=== PATIENT | female | born 1970 | race Caucasian/White ===

== ENCOUNTER 2019-01-06 17:03 | Outpatient (CLI) | payer OTHER ==
--- NOTE | 2019-01-06 21:51 | MRI Report ---
Reason: FATIGUE Procedure Date: 01/06/2019 Accession Number: [id number] / [id number] Procedure: MRI - Brain W/O CPT Code: FULL RESULT: EXAM: MRI BRAIN WITHOUT CONTRAST EXAM DATE: 01/06/2019 05:54 PM. CLINICAL HISTORY: Fatigue. COMPARISON: None. TECHNIQUE: Multiplanar, multisequence T1-weighted and fluid-sensitive MR sequences of the brain were performed. Sequences optimized for routine evaluation. Other: None. IV Contrast: None. FINDINGS: Brain Volume: Normal for age. Parenchyma/Dura: No mass, acute infarct or hemorrhage. No white matter lesions identified. Ventricles/Cisterns: No hydrocephalus. No abnormal extra-axial fluid collection or hemorrhage. Orbits: Symmetric and unremarkable. Sella [place]: The sella appears normal. There is a partial "empty sella" appearance to the pituitary. No suprasellar mass or mass effect seen on the overlying optic structures. IAC: Symmetric and unremarkable. Vasculature: Normal signal flow void is seen in the major arterial structures at the skull base. Sinuses: Small left maxillary mucosal retention cyst versus polyps. Minimal mucosal thickening of the ethmoid air cells. Mastoid air cells and middle ear cavities appear clear. Bones: No focal pathologic appearing marrow signal changes. Other: There is T2 signal hyperintensity seen within the posterior right nasopharynx measuring 7 x 5 x 4 mm (CC x TR x AP) that may represent mucosal retention cyst versus polyp. IMPRESSION: No definite acute intracranial pathology seen; specifically, no acute infarct, acute intracranial hemorrhage, mass, hydrocephalus, or midline shift. RADIA
== END 2019-01-06 17:04 | disposition home or self-care (01) ==
LOC: DI 17:03
PROVIDERS: ATTEND General Practice
DX: R53.83 Other fatigue (principal)
CPT/HCPCS: 70551

== ENCOUNTER 2019-07-07 07:30 | Emergency (ER) | payer OTHER ==
[2019-07-07 07:47] VITALS: BP 113/72
[2019-07-07 08:26] LABS: BASOPHILS % (AUTO) 0.7 %; EOSINOPHILS # (AUTO) 0.3 10^3/uL (0.0-0.7); EOSINOPHILS % (AUTO) 4.5 %; HGB - HEMOGLOBIN 13.8 g/dL (12.0-16.0); LYMPHOCYTES # (AUTO) 1.3 10^3/uL (1.5-3.5); LYMPHOCYTES % (AUTO) 23.9 %; MEAN CORPUSCULAR HEMOGLOBIN 28.3 pg (27.0-31.0); MEAN CORPUSCULAR HGB CONC 32.9 g/dL (32.0-36.0); MEAN CORPUSCULAR VOLUME 85.9 fL (81.0-99.0); MEAN PLATELET VOLUME 10.4 fL (7.9-10.8); MONOCYTES # (AUTO) 0.4 10^3/uL (0.0-1.0); MONOCYTES % (AUTO) 7.1 %; NEUTROPHILS # (AUTO) 3.5 10^3/uL (1.5-6.6); NEUTROPHILS % (AUTO) 63.3 %; PLT - PLATELET COUNT 214 10^3/uL (130-450); RED BLOOD COUNT 4.88 10^6/uL (4.20-5.40); RED CELL DISTRIBUTION WIDTH 12.4 % (12.0-15.0); WHITE BLOOD COUNT 5.6 x10^3/uL (4.8-10.8)
[2019-07-07 08:29] LABS: BILIRUBIN,URINE NEGATIVE (NEGATIVE); GLUCOSE, URINE (UA) NEGATIVE (NEGATIVE); KETONES,URINE (UA) NEGATIVE (NEGATIVE); LEUKOCYTE ESTERASE, URINE NEGATIVE (NEGATIVE); NITRITE,URINE NEGATIVE (NEGATIVE); OCCULT BLOOD,URINE NEGATIVE (NEGATIVE); PROTEIN,URINE NEGATIVE (NEGATIVE); UROBILINOGEN,URINE 0.2 (NORMAL) E.U./dL (NORMAL)
--- NOTE | 2019-07-07 08:29 | ED Physician Documentation ---
PD HPI NVD - Stated complaint Stated Complaint: ABD PX - Chief complaint Chief Complaint: Abd Pain - History obtained from History obtained from: Patient - History of Present Illness Timing - onset: Enter time (0300), Last night Timing - duration: Hours Timing - details: Still present Associated symptoms: Abdominal pain Contributing factors: No: Sick contact, Bad food, Travel, Recent antibiotics, Alcohol use, Anticoagulated, Diabetes Improved by: Laying still Worsened by: Moving, Position, Palpation Similar symptoms before: Diagnosis (gall stone and bowel obstruction) Recently seen: Not recently seen - Additonal information Additional information: 48-year-old female with a history of bipolar disorder and endometriosis has had a prior bowel obstruction related to mesh placed for hernia some 7 years ago. She has a known large gallstone and she has had problems with pain in the right upper quadrant for years. Today she indicates that early in the morning she was awakened by pain nausea and vomiting and this is persisted. This is much worse than what she has had for episodes of right upper quadrant pain previously she states that now the right upper quadrant does not seem as tender but she still has 7 out of 10 pain. The pain is mostly across the lower abdomen. 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, 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 - Present Medications Home Medications: Ambulatory Orders Medication Instructions Recorded Confirmed Escitalopram [Lexapro] 10 mg PO DAILY 07/07/19 07/07/19 Prozasin 2 mg ORAL DAILY 07/07/19 Topiramate [Topamax] 50 mg PO 07/07/19 - Allergies Allergies/Adverse Reactions: Allergies Allergy/AdvReac Type Severity Reaction Status Date / Time Latex, Natural Rubber Allergy Unknown unknown Verified 07/07/19 07:47 adhesive AdvReac Unknown UNKOWN Verified 07/07/19 07:47 - Social History Does the pt smoke?: No Smoking Status: Never smoker Does the pt drink ETOH?: Yes Does the pt have substance abuse?: No - Immunizations Immunizations are current?: Yes PD ED PE NORMAL - Vitals Vital signs reviewed: Yes (normal ) - General General: Alert and oriented X 3, No acute distress, Well developed/nourished - HEENT HEENT: Atraumatic, PERRL, EOMI - Neck Neck: Supple, no meningeal sign, No bony TTP - Cardiac Cardiac: RRR, No murmur - Respiratory Respiratory: No respiratory distress, Clear bilaterally - Abdomen Abdomen: Soft, Other (There is tender mass in the infraumbilical area. This extends all the way across the lower abdomen and with continued circumfirential pressure the hernia reduces with relief of pain. ) - Back Back: No CVA TTP, No spinal TTP - Derm Derm: Normal color, Warm and dry, No rash - Extremities Extremities: No deformity, No edema, No calf tenderness / cord - Neuro Neuro: Alert and oriented X 3, ear nose and throat specialist 2-12 intact, No motor deficit, No sensory deficit, Normal speech Eye Opening: Spontaneous Motor: Obeys Commands Verbal: Oriented GCS Score: 15 - Psych Psych: Normal mood, Normal affect Results - Vitals Vitals: Vital Signs - 24 hr 07/07/19 07/07/19 07/07/19 07:42 09:24 10:19 Temperature 35.8 C L Heart Rate 64 75 69 Respiratory 18 20 Rate Blood Pressure 113/72 O2 Saturation 99 99 100 07/07/19 10:47 Temperature Heart Rate 75 Respiratory Rate Blood Pressure O2 Saturation 96 Oxygen O2 Source Room air - Labs Labs: Laboratory Tests 07/07/19 07/07/19 07/07/19 07:50 08:00 08:00 WBC 5.6 RBC 4.88 Hgb 13.8 Hct 41.9 MCV 85.9 MCH 28.3 MCHC 32.9 RDW 12.4 Plt Count 214 MPV 10.4 Neut # (Auto) 3.5 Lymph # (Auto) 1.3 L [place] # (Auto) 0.4 Eos # (Auto) 0.3 Baso # (Auto) 0.0 Absolute Nucleated RBC 0.00 Nucleated RBC % 0.0 Sodium 140 Potassium 3.7 Chloride 108 Carbon Dioxide 22 Anion Gap 10.0 BUN 19 Creatinine 0.8 Estimated GFR (MDRD) 77 L Glucose 161 H Calcium 8.8 Total Bilirubin 0.5 AST 18 ALT 16 Alkaline Phosphatase 59 Total Protein 7.4 Albumin 4.3 Globulin 3.1 Albumin/Globulin Ratio 1.4 Lipase 108 H Urine Color YELLOW Urine Clarity CLEAR Urine pH 6.0 Ur Specific [place] 1.025 Urine Protein NEGATIVE Urine Glucose (UA) NEGATIVE Urine Ketones NEGATIVE Urine Occult Blood NEGATIVE Urine Nitrite NEGATIVE Urine Bilirubin NEGATIVE Urine Urobilinogen 0.2 (NORMAL) Ur Leukocyte Esterase NEGATIVE Ur Microscopic Review NOT INDICATED Urine Culture Comments NOT INDICATED - Rads (name of study) CT ab w Radiology: Prelim report reviewed (Impression: Large lower abdominal/upper pelvis ventral hernia containing nonobstructed small and large bowel.), EMP read indepedently, See rad report Procedures - Bedside sono Bedside sono by EMP: With use of bedside ultrasound the right upper quadrant is imaged the gallbladder is distended there is a single large stone with shadowing there is no evidence of pericholecystic fluid the gallbladder itself is not sonographically tender. The gallbladder wall is measured at 0.37 cm. This gallbladder appears to have a solitary stone without evidence of inflammation and is sonographically nontender. PD MEDICAL DECISION MAKING - ED course Complexity details: reviewed old records, reviewed results, re-evaluated patient, considered differential, d/w patient ED course: 48-year-old female with a prior history of bowel obstruction has abdominal pain nausea and vomiting and on initial examination she is not tender in the right upper quadrant where the obvious finding of the gallstone is present. The bedside ultrasound is reassuring for a process not involving the gallbladder. A CT scan of the abdomen and pelvis with contrast is obtained to rule out obstruction. There is a large ventral hernia containing nonobstructed loops of small and large bowel. This is area of the patient's tenderness. The patient is reexamined and the hernia is reduced with circumferential pressure and patient has resolution of her symptoms. I suspect there is some tightness somewhere in this patient's large hernia that reduction has resolved. I have discussed with the patient management of her hernia including ways to reduce it when necessary and use of an abdominal binder. The hernia defect is large and unlikely to produce a obstruction. The patient does frequently get symptoms when she coughs or vomits. She does have questions about the gallstone and whether she should have her gallbladder taken out. I have referred her to the surgeon for this discussion as the stone does look like it is too large to get out of her gallbladder. She has having symptoms of gallbladder pain about 4-5 times per year Departure - Departure Disposition: 01 Home, Self Care Clinical Impression: Ventral hernia without obstruction or gangrene Condition: Stable Instructions: ED Hernia Inguinal [facility]: [facility]Provider Group] Comments: Today it appears your pain was related to your hernia and my recommendation is, that if you get these symptoms again, to attempt to reduce this yourself. If you are unable to we are here 24 hours a day and can assist you with this. As far as your gallbladder is concerned my recommendation is to follow-up with the surgeon about the advisability of having this removed. Discharge Date/Time: 07/07/19 11:08
[2019-07-07 08:34] LABS: ALBUMIN 4.3 g/dL (3.2-5.5); ALBUMIN/GLOBULIN RATIO 1.4 (1.0-2.2); BILIRUBIN,TOTAL 0.5 mg/dL (0.2-1.0); CALCIUM 8.8 mg/dL (8.5-10.3); CREATININE 0.8 mg/dL (0.4-1.0); TOTAL PROTEIN 7.4 g/dL (6.7-8.2)
[2019-07-07 08:37] LABS: CLARITY,URINE CLEAR (CLEAR)
[2019-07-07] MEDS ORDERED: IOVERSOL 320 50 ML VIAL ONE (08:38)
[2019-07-07] MEDS ORDERED: IOVERSOL 320 100 ML VIAL IVP ONE ×2 (08:38→09:57)
[2019-07-07] MEDS ORDERED: HYDROmorphone 1 MG/ML CARPUJECT IVP STA (09:02)
[2019-07-07] MEDS ORDERED: ONDANSETRON 4 MG/2 ML VIAL IVP STA (09:02)
[2019-07-07] MEDS ORDERED: SODIUM CHLORIDE 0.9% 1,000 ML IV ONE (09:02)
[2019-07-07] MEDS ORDERED: IOVERSOL 320 50 ML VIAL PO ONE (09:57)
--- NOTE | 2019-07-07 10:06 | CT Report ---
Reason: lower abd pain/vomiting hx/o obstruction Procedure Date: 07/07/2019 Accession Number: [id number] / [id number] Procedure: CT - Abdomen/Pelvis W CPT Code: Final Report FULL RESULT: EXAM: CT ABDOMEN AND PELVIS EXAM DATE: 07/07/2019 09:47 AM. CLINICAL HISTORY: Lower abdominal pain/vomiting history of obstruction. COMPARISONS: ABDOMEN/PELVIS W/ 10/16/2012 12:57 AM. TECHNIQUE: Routine helical CT imaging was performed through the abdomen and pelvis. IV contrast: 100 mL of Optiray 320 contrast. Enteric contrast: Yes. Reconstructions: Coronal and sagittal. In accordance with CT protocol optimization, one or more of the following dose reduction techniques were utilized for this exam: automated exposure control, adjustment of mA and/or KV based on patient size, or use of iterative reconstructive technique. FINDINGS: Lung Bases: Unremarkable. Liver: Stable 1 cm cyst inferior tip of the right hepatic lobe. No developing hepatic masses. Gallbladder/Bile Ducts: Unremarkable. Spleen: Normal. Pancreas: Normal. Adrenal Glands: Normal. Kidneys: Normal. No masses or hydronephrosis. Peritoneal Cavity/Bowel: There is a large ventral hernia into the patient's panniculus at the level of the iliac crest. The hernia contains non-obstructed small and large bowel. The neck of the hernia is measured at 8 cm transversely. The appendix is not well seen. Pelvic Organs: Urinary bladder appears unremarkable. The uterus is absent. No cystic or mass lesions in either adnexa. Vasculature: No aneurysms or other significant abnormality. Bones: No significant abnormality. Other: None. IMPRESSION: Large lower abdominal/upper pelvis ventral hernia containing nonobstructed small and large bowel. RADIA
== END 2019-07-07 11:08 | disposition home or self-care (01) ==
LOC: ED 07:30
DX: K80.20 Calculus of gallbladder without cholecystitis without obstruction (principal); K43.9 Ventral hernia without obstruction or gangrene
CPT/HCPCS: 36415; 74177; 80053; 81003; 83690; 85025; 96374; 99284; J1170; Q9967; 81001; 87086

== ENCOUNTER 2019-11-14 18:45 | Emergency (ER) | payer OTHER ==
--- NOTE | 2019-11-14 19:07 | ED Physician Documentation ---
PD HPI HEADACHE - Stated complaint Stated Complaint: MIGRAINE,NAUSEA,SWEATING - Chief complaint Chief Complaint: Cardiac - History obtained from History obtained from: Patient - History of Present Illness Timing - onset: How many days ago (2) Timing - onset during: Rest, Light activity Timing - duration: Days (2) Timing - details: Gradual onset, Waxing and waning Worst headache ever?: No: Worst headache ever? Location: Front Quality: Throbbing, Aching Associated symptoms: Nausea, Other (Feeling of general malaise and myalgia. She does have fibromyalgia and feels that this is flared up. No history of migraines.). No: Fever, Vomiting, Weakness, Vision changes Improved by: No: Dark room Worsened by: No: Light, Noise Contributing factors: Recent illness (Currently feeling ill with nausea myalgias and a feeling of general weakness as well as some sinus congestion. She denies sinus discharge.). No: Hypertension, Trauma Similar symptoms before: Has not had sx before Recently seen: Not recently seen Review of Systems Constitutional: reports: Chills, Myalgias, Fatigue. denies: Fever Nose: reports: Sinus pressure / pain. denies: Rhinorrhea / runny nose, Congestion Throat: denies: Sore throat Cardiac: reports: Chest pain / pressure (left side of neck, shoulder and some to the arm. Has some pain with lifting arm above shoulder and with tipping head. No rash.) Respiratory: denies: Dyspnea, Cough GI: denies: Abdominal Pain, Nausea, Vomiting Skin: denies: Rash, Lesions Musculoskeletal: reports: Neck pain. denies: Back pain Neurologic: reports: Generalized weakness, Headache. denies: Focal weakness, Numbness, Near syncope, Altered mental status PD PAST MEDICAL HISTORY - Past Medical History Cardiovascular: None Respiratory: None Endocrine/Autoimmune: None GI: Hiatal hernia : None HEENT: None Psych: Anxiety, Bipolar disorder Musculoskeletal: Fibromyalgia Derm: None - Past Surgical History Past Surgical History: Yes General: Hiatal hernia repair /[employer]: section, 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 - Present Medications Home Medications: Ambulatory Orders Medication Instructions Recorded Confirmed Escitalopram [Lexapro] 10 mg PO DAILY 07/07/19 07/07/19 Prozasin 2 mg ORAL DAILY 07/07/19 Topiramate [Topamax] 50 mg PO 07/07/19 Hydrocodone/Acetaminophen [[place] 1 each PO Q6H PRN #20 tablet 11/14/19 5-325 Tablet] Naproxen 500 mg PO BID #25 tablet 11/14/19 - Allergies Allergies/Adverse Reactions: Allergies Allergy/AdvReac Type Severity Reaction Status Date / Time Latex, Natural Rubber Allergy Unknown unknown Verified 07/07/19 07:47 adhesive AdvReac Unknown UNKOWN Verified 07/07/19 07:47 - Social History Does the pt smoke?: No Smoking Status: Never smoker Does the pt drink ETOH?: Yes Does the pt have substance abuse?: No - Immunizations Immunizations are current?: Yes PD ED PE NORMAL - Vitals Vital signs reviewed: Yes - General General: Alert and oriented X 3, No acute distress, Well developed/nourished - HEENT HEENT: Atraumatic, PERRL, EOMI, Ears normal, Moist mucous membranes, Pharynx benign - Neck Neck: Supple, no meningeal sign, No bony TTP, No adenopathy - Cardiac Cardiac: RRR, No murmur - Respiratory Respiratory: Clear bilaterally - Abdomen Abdomen: Soft, Non tender - Back Back: No CVA TTP - Derm Derm: Normal color, Warm and dry - Extremities Extremities: No tenderness to palpate, Normal ROM s pain, No edema, No calf tenderness / cord - Neuro Neuro: Alert and oriented X 3, No motor deficit, Normal speech Eye Opening: Spontaneous Motor: Obeys Commands Verbal: Oriented GCS Score: 15 - Psych Psych: Normal mood Results - Vitals Vitals: Vital Signs - 24 hr 11/14/19 11/14/19 11/14/19 18:50 21:00 21:52 Temperature 37.1 C 36.7 C Heart Rate 103 H 96 75 Respiratory 18 14 91 H Rate Blood Pressure 144/103 H 114/70 124/70 O2 Saturation 99 96 12 L Oxygen O2 Source Room air - Labs Labs: Laboratory Tests 11/14/19 11/14/19 11/14/19 18:59 18:59 18:59 WBC 6.7 RBC 5.48 H Hgb 15.2 Hct 46.6 MCV 85.0 MCH 27.7 MCHC 32.6 RDW 11.9 L Plt Count 201 MPV 11.6 H Neut # (Auto) 4.3 Lymph # (Auto) 1.6 [place] # (Auto) 0.5 Eos # (Auto) 0.2 Baso # (Auto) 0.0 Absolute Nucleated RBC 0.00 Nucleated RBC % 0.0 Sodium 139 Potassium 3.9 Chloride 103 Carbon Dioxide 25 Anion Gap 11.0 BUN 9 Creatinine 0.7 Estimated GFR (MDRD) 89 Glucose 125 H Calcium 9.6 Total Bilirubin 1.0 AST 22 ALT 25 Alkaline Phosphatase 45 Troponin I High Sens < 2.3 L C-Reactive Protein B-Natriuretic Peptide Total Protein 7.8 Albumin 4.9 Globulin 2.9 Albumin/Globulin Ratio 1.7 Lipase 31 Urine Color Urine Clarity Urine pH Ur Specific [place] Urine Protein Urine Glucose (UA) Urine Ketones Urine Occult Blood Urine Nitrite Urine Bilirubin Urine Urobilinogen Ur Leukocyte Esterase Ur Microscopic Review Urine Culture Comments 11/14/19 11/14/19 11/14/19 18:59 18:59 20:41 WBC RBC Hgb Hct MCV MCH MCHC RDW Plt Count MPV Neut # (Auto) Lymph # (Auto) [place] # (Auto) Eos # (Auto) Baso # (Auto) Absolute Nucleated RBC Nucleated RBC % Sodium Potassium Chloride Carbon Dioxide Anion Gap BUN Creatinine Estimated GFR (MDRD) Glucose Calcium Total Bilirubin AST ALT Alkaline Phosphatase Troponin I High Sens C-Reactive Protein < 1.0 B-Natriuretic Peptide 20 Total Protein Albumin Globulin Albumin/Globulin Ratio Lipase Urine Color YELLOW Urine Clarity CLEAR Urine pH 6.0 Ur Specific [place] 1.020 Urine Protein NEGATIVE Urine Glucose (UA) NEGATIVE Urine Ketones NEGATIVE Urine Occult Blood NEGATIVE Urine Nitrite NEGATIVE Urine Bilirubin NEGATIVE Urine Urobilinogen 0.2 (NORMAL) Ur Leukocyte Esterase NEGATIVE Ur Microscopic Review NOT INDICATED Urine Culture Comments NOT INDICATED PD MEDICAL DECISION MAKING - ED course Complexity details: re-evaluated patient (She is feeling much better with IV fluids and medications. No localizing symptoms. Her headache is mostly gone. Her feeling of myalgias are improved as well.), considered differential (General malaise headache and feeling of unwellness. No cough or shortness of breath. She denies fevers. Consider local infections and can check chest x-ray and urine test. We can check a COVID test though she has not had exposures. The myalgias seem a flareup of her fibromyalgia.), d/w patient Departure - Departure Disposition: 01 Home, Self Care Clinical Impression: Myalgia Headache Qualifiers: Headache type: unspecified Headache chronicity pattern: acute headache Intractability: not intractable Qualified Code(s): R51 - Headache Chest pain Qualifiers: Chest pain type: precordial pain Qualified Code(s): R07.2 - Precordial pain Condition: Stable Record reviewed to determine appropriate education?: Yes Prescriptions: Naproxen 500 mg PO BID #25 tablet Hydrocodone/Acetaminophen [[place] 5-325 Tablet] 1 each PO Q6H PRN #20 tablet PRN Reason: Pain Comments: No signs of obvious infection based on your chest x-ray, urine test, blood count. I do not know whether you are just having some exacerbation of fibromyalgia related to environmental or inflammatory causes. Consider the possibility of early infectious cause and return if you have progressive symptoms or worsening of symptoms. Otherwise take naproxen anti-inflammatory twice daily for the next week or so and add Tylenol or hydrocodone if needed for pains. See how your symptoms are over the next several days. Discharge Date/Time: 11/14/19 22:18
[2019-11-14 19:18] LABS: BASOPHILS % (AUTO) 0.5 %; EOSINOPHILS # (AUTO) 0.2 10^3/uL (0.0-0.7); EOSINOPHILS % (AUTO) 2.7 %; HGB - HEMOGLOBIN 15.2 g/dL (12.0-16.0); LYMPHOCYTES # (AUTO) 1.6 10^3/uL (1.5-3.5); LYMPHOCYTES % (AUTO) 24.2 %; MEAN CORPUSCULAR HEMOGLOBIN 27.7 pg (27.0-31.0); MEAN CORPUSCULAR HGB CONC 32.6 g/dL (32.0-36.0); MEAN PLATELET VOLUME 11.6 fL (7.9-10.8); MONOCYTES # (AUTO) 0.5 10^3/uL (0.0-1.0); MONOCYTES % (AUTO) 7.7 %; NEUTROPHILS # (AUTO) 4.3 10^3/uL (1.5-6.6); NEUTROPHILS % (AUTO) 64.6 %; PLT - PLATELET COUNT 201 10^3/uL (130-450); RED BLOOD COUNT 5.48 10^6/uL (4.20-5.40); RED CELL DISTRIBUTION WIDTH 11.9 % (12.0-15.0); WHITE BLOOD COUNT 6.7 x10^3/uL (4.8-10.8)
[2019-11-14 19:24] LABS: ALBUMIN 4.9 g/dL (3.2-5.5); ALBUMIN/GLOBULIN RATIO 1.7 (1.0-2.2); CALCIUM 9.6 mg/dL (8.5-10.3); CREATININE 0.7 mg/dL (0.4-1.0); TOTAL PROTEIN 7.8 g/dL (6.7-8.2)
[2019-11-14] MEDS: SODIUM CHLORIDE 0.9% 1,000 ML IV STA (19:39)
--- NOTE | 2019-11-14 19:39 | XRAY Report ---
PROCEDURE: Chest 1 View X-Ray INDICATIONS: Chest pain TECHNIQUE: One view of the chest was acquired. COMPARISON: None. FINDINGS: Surgical changes and devices: None. Lungs and pleura: No pleural effusions or pneumothorax. Lungs are clear. Mediastinum: Mediastinal contours appear normal. Heart size is normal. Bones and chest wall: No suspicious bony lesions. Overlying soft tissues appear unremarkable. IMPRESSION: Normal for age, source of chest pain is not seen. Reviewed by: Guero Travis MD on 11/14/2019 7:38 PM PDT Approved by: Guero Travis MD on 11/14/2019 7:38 PM PDT Station ID: [id number]
[2019-11-14] MEDS: MORPHINE 2 MG/ML CARPUJECT IVP STA ×2 (19:40→21:39)
[2019-11-14] MEDS: ONDANSETRON 4 MG/2 ML VIAL IVP STA (19:40)
[2019-11-14] MEDS: DEXAMETHASONE 10 MG/ML VIAL IVP STA (19:40)
[2019-11-14] MEDS: KETOROLAC 30 MG/ML VIAL IVP STA (19:40)
[2019-11-14 21:05] LABS: BILIRUBIN,URINE NEGATIVE (NEGATIVE); GLUCOSE, URINE (UA) NEGATIVE (NEGATIVE); KETONES,URINE (UA) NEGATIVE (NEGATIVE); LEUKOCYTE ESTERASE, URINE NEGATIVE (NEGATIVE); NITRITE,URINE NEGATIVE (NEGATIVE); OCCULT BLOOD,URINE NEGATIVE (NEGATIVE); PROTEIN,URINE NEGATIVE (NEGATIVE); UROBILINOGEN,URINE 0.2 (NORMAL) E.U./dL (NORMAL)
[2019-11-14 21:07] LABS: CLARITY,URINE CLEAR (CLEAR)
[2019-11-14 21:53] VITALS: BP 124/70
== END 2019-11-14 22:18 | disposition home or self-care (01) ==
LOC: ED 18:45
DX: M79.7 Fibromyalgia (principal); R51 Headache; R07.2 Precordial pain; Z20.828 Contact with and (suspected) exposure to other viral communicable diseases
CPT/HCPCS: 36415; 71045; 80053; 81001; 81003; 83690; 83880; 84484; 85025; 86140; 87086; 93005; 96361; 96374; 96375; 99284

== ENCOUNTER 2019-11-22 11:00 | Emergency (ER) | payer OTHER ==
[2019-11-22] MEDS ORDERED: SODIUM CHLORIDE 0.9% 1,000 ML IV STA (11:48)
[2019-11-22] MEDS ORDERED: ONDANSETRON 4 MG/2 ML VIAL IVP STA (11:48)
[2019-11-22] MEDS ORDERED: KETOROLAC 30 MG/ML VIAL IVP STA (11:48)
[2019-11-22] MEDS ORDERED: diphenhydrAMINE INJ 50 MG/ML VIAL IVP STA (11:49)
[2019-11-22] MEDS ORDERED: ALBUTEROL 1 PUFF INH STA (11:50)
--- NOTE | 2019-11-22 11:52 | ED Physician Documentation ---
History of Present Illness - Stated complaint Stated Complaint: MIGRAINE, COUGH - Chief complaint Chief Complaint: Resp - History obtained from History obtained from: Patient - Additonal information Additional information: 49-year-old female presents to the emergency department for evaluation of 2 days of a headache. She reports it is mostly right-sided and pressure-like. She reports that she has light sensitivity and has been nauseated. She denies any fevers but does endorse that she has had a cough for nearly 2 weeks and was seen here on 13 November for a cough and headache. COVID-19 testing at that time was negative. Patient denies abdominal pain or dysuria. She denies any falls or trauma. took aleve for her osorio with mild relief. She denies that she has any history of headaches until the last few months ago. She does report that she has bipolar and was previously taking Topamax which she stopped on her own. she reprots a hx of fibromyalgia and bipolar disorder. psh: CHANI Review of Systems Constitutional: denies: Fever Eyes: denies: Loss of vision Ears: denies: Loss of hearing Nose: denies: Rhinorrhea / runny nose, Congestion Throat: denies: Dental pain / toothache Cardiac: denies: Chest pain / pressure Respiratory: reports: Cough, Wheezing. denies: Dyspnea, Hemoptysis GI: denies: Abdominal Pain, Abdominal Swelling, Nausea, Vomiting : denies: Dysuria, Frequency, Hesitancy Skin: denies: Rash, Lesions Musculoskeletal: denies: Neck pain, Back pain, Extremity pain, Joint pain, Extremity swelling Neurologic: denies: Generalized weakness, Focal weakness, Numbness, Syncope, Seizure PD PAST MEDICAL HISTORY - Past Medical History Cardiovascular: None Respiratory: None Endocrine/Autoimmune: None GI: Hiatal hernia : None HEENT: None Psych: Anxiety, Bipolar disorder Musculoskeletal: Fibromyalgia Derm: None - Past Surgical History Past Surgical History: Yes 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, 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 - Present Medications Home Medications: Ambulatory Orders Medication Instructions Recorded Confirmed Escitalopram [Lexapro] 10 mg PO DAILY 07/07/19 07/07/19 Prozasin 2 mg ORAL DAILY 07/07/19 Topiramate [Topamax] 50 mg PO 07/07/19 Hydrocodone/Acetaminophen [[place] 1 each PO Q6H PRN #20 tablet 11/14/19 5-325 Tablet] Naproxen 500 mg PO BID #25 tablet 11/14/19 Albuterol Sulf [Ventolin Hfa 1 - 2 puffs INH Q4HR PRN #1 inhaler 11/22/19 Inhaler] Benzonatate [Tessalon Perle] 100 - 200 mg PO TID PRN #30 capsule 11/22/19 - Allergies Allergies/Adverse Reactions: Allergies Allergy/AdvReac Type Severity Reaction Status Date / Time Latex, Natural Rubber Allergy Unknown unknown Verified 11/22/19 11:21 adhesive AdvReac Unknown UNKOWN Verified 11/22/19 11:21 - Social History Does the pt smoke?: No Smoking Status: Never smoker Does the pt drink ETOH?: Yes Does the pt have substance abuse?: No - Immunizations Immunizations are current?: Yes PD ED PE NORMAL - General General: Alert and oriented X 3, No acute distress, Well developed/nourished, Other (obese) - HEENT HEENT: Atraumatic, PERRL, EOMI, Moist mucous membranes, Pharynx benign, Dentition benign - Neck Neck: Supple, no meningeal sign, No adenopathy - Cardiac Cardiac: RRR, No murmur - Respiratory Respiratory: No respiratory distress, Clear bilaterally - Abdomen Abdomen: Normal bowel sounds, Soft, Non tender, Non distended - Back Back: No CVA TTP, No spinal TTP - Derm Derm: Normal color, Warm and dry, No rash - Extremities Extremities: No deformity, Normal ROM s pain - Neuro Neuro: Alert and oriented X 3, batch operator 2-12 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, No motor deficit, No sensory deficit, Normal speech, Other (normal finger nose, rapid alternating movement) Eye Opening: Spontaneous Motor: Obeys Commands Verbal: Oriented GCS Score: 15 Results - Vitals Vitals: Vital Signs - 24 hr 11/22/19 11/22/19 11/22/19 11:11 11:31 12:10 Temperature 36.8 C 37.2 C Heart Rate 87 85 79 Respiratory 20 12 20 Rate Blood Pressure 136/84 H 131/71 H O2 Saturation 96 96 Oxygen O2 Source Room air - Labs Labs: Laboratory Tests 11/22/19 11:57 Urine Color YELLOW Urine Clarity CLEAR Urine pH 7.5 Ur Specific [place] 1.010 Urine Protein NEGATIVE Urine Glucose (UA) NEGATIVE Urine Ketones NEGATIVE Urine Occult Blood NEGATIVE Urine Nitrite NEGATIVE Urine Bilirubin NEGATIVE Urine Urobilinogen 0.2 (NORMAL) Ur Leukocyte Esterase NEGATIVE Ur Microscopic Review NOT INDICATED Urine Culture Comments NOT INDICATED - Rads (name of study) chest xray Radiology: Final report received (No acute cardiopulmonary pathology) PD MEDICAL DECISION MAKING - ED course Complexity details: reviewed old records, reviewed results, re-evaluated patient, considered differential, d/w patient ED course: 49 year old female here with cc of 2 days right sided headache with associated photophobia as well as persistent cough for much of the last 2 weeks. - Urine showed no signs of infection. Chest x-ray also showed no acute focal opacities. There is a lot of smoke in the air locally and patient wonders if that is exacerbating her cough. Will defer antibiotics at this time as suspicion for acute bacterial process is low. She was given a liter of fluids Toradol and Benadryl in the ER with marked improvement in her headache. She was also given one-time dose of Decadron. At this time patient feels markedly better and will be discharged home a repeat COVID-19 test is pending however. Patient reports that she will follow-up closely with base physician for longer- term evaluation and to discuss management of her headaches as well as to discuss whether resuming the Topamax is appropriate at this time with her history of bipolar disorder Departure - Departure Disposition: 01 Home, Self Care Clinical Impression: Cough, Congestion of nasal sinus Headache Qualifiers: Headache type: unspecified Headache chronicity pattern: acute headache Intractability: not intractable Qualified Code(s): R51 - Headache Condition: Stable Record reviewed to determine appropriate education?: Yes Instructions: ED Cephalgia Unspecified, ED Bronchitis Asthmatic Ch Prescriptions: Albuterol Sulf [Ventolin Hfa Inhaler] 1 - 2 puffs INH Q4HR PRN #1 inhaler PRN Reason: Shortness Of Air/Wheezing Benzonatate [Tessalon Perle] 100 - 200 mg PO TID PRN #30 capsule PRN Reason: Cough Comments: Bell I hope that you are feeling better soon. I think that you are likely developing migraine headaches. The medications we gave you today should keep it at bay for a number of weeks. Your urine looks good there is no infection the chest x-ray is also normal. I think the cough and congestion may be due to seasonal allergies and the air quality locally. I prescribed some albuterol to help with your cough as well as cough suppressant. I would like you to schedule close follow-up with a primary care doctor to discuss your headaches in the long-term. If you develop worsening headaches, have fevers uncontrolled vomiting please return to the emergency department for a second look
[2019-11-22 12:16] LABS: BILIRUBIN,URINE NEGATIVE (NEGATIVE); GLUCOSE, URINE (UA) NEGATIVE (NEGATIVE); KETONES,URINE (UA) NEGATIVE (NEGATIVE); LEUKOCYTE ESTERASE, URINE NEGATIVE (NEGATIVE); NITRITE,URINE NEGATIVE (NEGATIVE); OCCULT BLOOD,URINE NEGATIVE (NEGATIVE); PH,URINE 7.5 PH (5.0-7.5); PROTEIN,URINE NEGATIVE (NEGATIVE); UROBILINOGEN,URINE 0.2 (NORMAL) E.U./dL (NORMAL)
[2019-11-22 12:23] LABS: CLARITY,URINE CLEAR (CLEAR)
[2019-11-22] MEDS ORDERED: DEXAMETHASONE 10 MG/ML VIAL PO STA (12:25)
[2019-11-22] MEDS ORDERED: CHERRY SYRUP 10 ML UDC PO ONE (12:25)
--- NOTE | 2019-11-22 12:32 | XRAY Report ---
PROCEDURE: Chest 1 View X-Ray INDICATIONS: chest pain/cough TECHNIQUE: One view of the chest was acquired. COMPARISON: 11/14/2019 FINDINGS: Surgical changes and devices: None. Lungs and pleura: No pleural effusions or pneumothorax. Lungs are clear. Mediastinum: Mediastinal contours appear normal. Heart size is normal. Bones and chest wall: No suspicious bony lesions. Overlying soft tissues appear unremarkable. IMPRESSION: No acute cardiopulmonary pathology. Reviewed by: Eddie Andrews MD on 11/22/2019 12:31 PM PDT Approved by: Eddie Andrews MD on 11/22/2019 12:31 PM PDT Station ID: [id number]
[2019-11-22 13:30] VITALS: BP 122/80
== END 2019-11-22 13:31 | disposition home or self-care (01) ==
LOC: ED 11:00
DX: R51 Headache (principal); R05 Cough; R09.81 Nasal congestion; Z20.828 Contact with and (suspected) exposure to other viral communicable diseases; E66.9 Obesity, unspecified; H53.149 Visual discomfort, unspecified
CPT/HCPCS: 36415; 71045; 81003; 87635; 94640; 96361; 96374; 96375; 99284; A9270; J1200; 81001; 87086

== ENCOUNTER 2020-09-13 14:47 | Emergency (ER) | payer OTHER ==
[2020-09-13 15:50] LABS: BASOPHILS % (AUTO) 0.5 %; EOSINOPHILS # (AUTO) 0.1 10^3/uL (0.0-0.7); EOSINOPHILS % (AUTO) 2.4 %; HGB - HEMOGLOBIN 13.3 g/dL (12.0-16.0); LYMPHOCYTES # (AUTO) 0.6 10^3/uL (1.5-3.5); LYMPHOCYTES % (AUTO) 16.5 %; MEAN CORPUSCULAR HEMOGLOBIN 27.7 pg (27.0-31.0); MEAN CORPUSCULAR HGB CONC 33.3 g/dL (32.0-36.0); MEAN CORPUSCULAR VOLUME 83.2 fL (81.0-99.0); MEAN PLATELET VOLUME 9.7 fL (7.9-10.8); MONOCYTES # (AUTO) 0.5 10^3/uL (0.0-1.0); MONOCYTES % (AUTO) 13.4 %; NEUTROPHILS # (AUTO) 2.6 10^3/uL (1.5-6.6); NEUTROPHILS % (AUTO) 66.7 %; PLT - PLATELET COUNT 180 10^3/uL (130-450); RED BLOOD COUNT 4.81 10^6/uL (4.20-5.40); RED CELL DISTRIBUTION WIDTH 12.4 % (12.0-15.0); WHITE BLOOD COUNT 3.8 x10^3/uL (4.8-10.8)
--- NOTE | 2020-09-13 15:52 | ED Physician Documentation ---
PD HPI DYSPNEA - Stated complaint Stated Complaint: SOA,CP,CLARKE,NECK PX - Chief complaint Chief Complaint: Cardiac - History obtained from History obtained from: Patient - History of Present Illness Timing - onset: Today Timing - onset during: Rest Timing - duration: Hours Timing - details: Gradual onset, Still present Inciting event(s): Other (The patient had a [employer] vaccine yesterday.) Improved by: Rest Worsened by: Coughing Associated symptoms: Cough, Chest pain / discomfort. No: Fever, Wheezing Similar symptoms before: Has not had sx before Recently seen: Clinic - Additional information Additional information: 50-year-old female was well yesterday she had her J&J vaccine given for Covid and today she is feeling unnaturally unwell.She is complaining of migrating pain across her chest a cough and a headache with stiff neck. She does not have fever. She felt that she may just sleep it off but was convinced by someone to come into the emergency department for evaluation. Review of Systems Constitutional: reports: Myalgias, Fatigue. denies: Fever Eyes: denies: Decreased vision Ears: reports: Ear pain Nose: denies: Congestion Throat: denies: Sore throat Cardiac: reports: Chest pain / pressure. denies: Palpitations, Pedal edema, Calf pain Respiratory: reports: Cough. denies: Dyspnea, Wheezing GI: reports: Nausea. denies: Abdominal Pain, Vomiting : denies: Dysuria, Frequency Skin: denies: Rash Musculoskeletal: reports: Neck pain. denies: Back pain, Extremity pain Neurologic: reports: Headache. 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 - Present Medications Home Medications: Ambulatory Orders Medication Instructions Recorded Confirmed Escitalopram [Lexapro] 10 mg PO DAILY 07/07/19 07/07/19 Prozasin 2 mg ORAL DAILY 07/07/19 Topiramate [Topamax] 50 mg PO 07/07/19 Hydrocodone/Acetaminophen [[place] 1 each PO Q6H PRN #20 tablet 11/14/19 5-325 Tablet] Naproxen 500 mg PO BID #25 tablet 11/14/19 Albuterol Sulf [Ventolin Hfa 1 - 2 puffs INH Q4HR PRN #1 inhaler 11/22/19 Inhaler] Benzonatate [Tessalon Perle] 100 - 200 mg PO TID PRN #30 capsule 11/22/19 Ondansetron Odt [Zofran] 4 mg TL Q6H PRN #10 tablet 09/13/20 - Allergies Allergies/Adverse Reactions: Allergies Allergy/AdvReac Type Severity Reaction Status Date / Time Latex, Natural Rubber Allergy Unknown unknown Verified 09/13/20 15:02 adhesive AdvReac Unknown UNKOWN Verified 09/13/20 15:02 - Social History Does the pt smoke?: No Smoking Status: Never smoker Does the pt drink ETOH?: Yes Does the pt have substance abuse?: No - Immunizations Immunizations are current?: Yes PD ED PE NORMAL - Vitals Vital signs reviewed: Yes (Hypertensive) - General General: Alert and oriented X 3, No acute distress, Well developed/nourished - HEENT HEENT: Atraumatic, PERRL, EOMI, Ears normal, Moist mucous membranes, Pharynx benign - Neck Neck: Supple, no meningeal sign, No bony TTP - Cardiac Cardiac: RRR, No murmur - Respiratory Respiratory: No respiratory distress, Clear bilaterally - Abdomen Abdomen: Normal bowel sounds, Soft, Non tender, Non distended, No organomegaly - Back Back: No CVA TTP, No spinal TTP - Derm Derm: Normal color, Warm and dry, No rash - Extremities Extremities: No deformity, No edema - Neuro Neuro: Alert and oriented X 3, biztalk architect 2-12 intact, No motor deficit, No sensory deficit, Normal speech Eye Opening: Spontaneous Motor: Obeys Commands Verbal: Oriented GCS Score: 15 - Psych Psych: Normal mood, Normal affect Results - Vitals Vitals: Vital Signs - 24 hr 09/13/20 09/13/20 09/13/20 14:58 15:13 16:01 Temperature 37.0 C Heart Rate 87 79 75 Respiratory 18 15 16 Rate Blood Pressure 145/89 H 152/82 H 162/84 H O2 Saturation 97 97 95 09/13/20 17:25 Temperature Heart Rate 76 Respiratory 16 Rate Blood Pressure 143/70 H O2 Saturation 98 Oxygen O2 Source Room air - Labs Labs: Laboratory Tests 09/13/20 09/13/20 09/13/20 15:47 15:47 15:47 WBC 3.8 L RBC 4.81 Hgb 13.3 Hct 40.0 MCV 83.2 MCH 27.7 MCHC 33.3 RDW 12.4 Plt Count 180 MPV 9.7 Neut # (Auto) 2.6 Lymph # (Auto) 0.6 L [place] # (Auto) 0.5 Eos # (Auto) 0.1 Baso # (Auto) 0.0 Absolute Nucleated RBC 0.00 Nucleated RBC % 0.0 Sodium 138 Potassium 3.7 Chloride 102 Carbon Dioxide 27 Anion Gap 9.0 BUN 10 Creatinine 0.8 Estimated GFR (MDRD) 76 L Glucose 121 H Calcium 9.0 Total Bilirubin 0.8 AST 17 ALT 21 Alkaline Phosphatase 56 Troponin I High Sens 3.7 B-Natriuretic Peptide Total Protein 7.1 Albumin 4.3 Globulin 2.8 Albumin/Globulin Ratio 1.5 Lipase 24 09/13/20 15:47 WBC RBC Hgb Hct MCV MCH MCHC RDW Plt Count MPV Neut # (Auto) Lymph # (Auto) [place] # (Auto) Eos # (Auto) Baso # (Auto) Absolute Nucleated RBC Nucleated RBC % Sodium Potassium Chloride Carbon Dioxide Anion Gap BUN Creatinine Estimated GFR (MDRD) Glucose Calcium Total Bilirubin AST ALT Alkaline Phosphatase Troponin I High Sens B-Natriuretic Peptide 19 Total Protein Albumin Globulin Albumin/Globulin Ratio Lipase - Rads (name of study) chest Radiology: Prelim report reviewed (Impression: No acute pulmonary process.), EMP read indepedently, See rad report PD MEDICAL DECISION MAKING - ED course Complexity details: considered differential, d/w patient ED course: 50-year-old female recently given a vaccination for Covid is concerned with a headache and migrating pains. She is administered intravenous saline and Tylenol and blood work is obtained to rule out HIT. Looks like a vaccine reaction without loss of platelets. Departure - Departure Disposition: 01 Home, Self Care Clinical Impression: Post-vaccination reaction Qualifiers: Encounter type: initial encounter Qualified Code(s): T88.1XXA - Other complications following immunization, not elsewhere classified, initial encounter Condition: Stable Instructions: Vaccine Specific Info Follow-Up: EVERARDO LYNN MD [Primary Care Provider] - Prescriptions: Ondansetron Odt [Zofran] 4 mg TL Q6H PRN #10 tablet PRN Reason: Nausea / Vomiting Comments: The general recommendation for these vaccine reactions is to take extra fluids and Tylenol. Tylenol only lasts about 4 hours. Repeated dosing will likely be necessary. Discharge Date/Time: 09/13/20 17:25
[2020-09-13] MEDS ORDERED: SODIUM CHLORIDE 0.9% 1,000 ML IV STA (15:54)
[2020-09-13] MEDS ORDERED: ACETAMINOPHEN 325 MG TABLET PO STA (15:54)
--- NOTE | 2020-09-13 15:58 | XRAY Report ---
PROCEDURE: Chest 1 View X-Ray INDICATIONS: Chest Pain TECHNIQUE: One view of the chest was acquired. COMPARISON: Chest x-ray 11/22/2019 FINDINGS: Surgical changes and devices: None. Lungs and pleura: No pleural effusions or pneumothorax. Lungs are clear. Mediastinum: Mediastinal contours appear normal. Heart size is normal. Bones and chest wall: No suspicious bony lesions. Overlying soft tissues appear unremarkable. IMPRESSION: No acute pulmonary process. Reviewed by: Ronel Mcintosh MD on 09/13/2020 3:56 PM PDT Approved by: Ronel Mcintosh MD on 09/13/2020 3:56 PM PDT Station ID: [id number]
[2020-09-13 16:09] LABS: ALBUMIN 4.3 g/dL (3.2-5.5); ALBUMIN/GLOBULIN RATIO 1.5 (1.0-2.2); BILIRUBIN,TOTAL 0.8 mg/dL (0.2-1.0); CREATININE 0.8 mg/dL (0.4-1.0); POTASSIUM 3.7 mmol/L (3.5-5.0); TOTAL PROTEIN 7.1 g/dL (6.7-8.2)
[2020-09-13] MEDS ORDERED: ONDANSETRON ODT 4 MG TABLET TL STA (17:19)
[2020-09-13 17:26] VITALS: BP 143/70
== END 2020-09-13 17:25 | disposition home or self-care (01) ==
LOC: ED 14:47
DX: R51.9 Headache, unspecified (principal); R05 Cough; M43.6 Torticollis; R07.89 Other chest pain; R11.0 Nausea; R53.83 Other fatigue; M79.10 Myalgia, unspecified site; T50.B95A Adverse effect of other viral vaccines, initial encounter
CPT/HCPCS: 36415; 71045; 80053; 83690; 83880; 84484; 85025; 93005; 99284; A9270; Q0162

== ENCOUNTER 2020-12-26 13:40 | Emergency (ER) | payer OTHER ==
[2020-12-26 14:00] LABS: BILIRUBIN,URINE NEGATIVE (NEGATIVE); GLUCOSE, URINE (UA) NEGATIVE (NEGATIVE); KETONES,URINE (UA) NEGATIVE (NEGATIVE); LEUKOCYTE ESTERASE, URINE NEGATIVE (NEGATIVE); NITRITE,URINE NEGATIVE (NEGATIVE); OCCULT BLOOD,URINE NEGATIVE (NEGATIVE); PROTEIN,URINE NEGATIVE (NEGATIVE); UROBILINOGEN,URINE 0.2 (NORMAL) E.U./dL (NORMAL)
[2020-12-26 14:03] LABS: CLARITY,URINE CLEAR (CLEAR)
--- NOTE | 2020-12-26 14:03 | ED Physician Documentation ---
PD HPI ABD PAIN - Stated complaint Stated Complaint: ABD PX - Chief complaint Chief Complaint: Abd Pain - History obtained from History obtained from: Patient - History of Present Illness Timing - onset: How many hours ago (2) Timing - duration: Hours (2) Timing - details: Abrupt onset (onset shortly after eating fried food.), Still present Quality: Aching, Sharp, Pain Location: RUQ, Epigastric Radiation: Upper back Worsened by: Palpation. No: Moving, Breathing Associated symptoms: Nausea. No: Fever, Vomiting, Diarrhea Similar symptoms before: Diagnosis (prior milder episodes and had U/S showing gallstones. 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 Having episodes of upper abd pain at times recently.) Review of Systems Constitutional: denies: Fever, Chills Nose: denies: Rhinorrhea / runny nose, Congestion Throat: denies: Sore throat Respiratory: denies: Cough GI: reports: Abdominal Pain, Nausea. 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 - Present Medications Home Medications: Ambulatory Orders Medication Instructions Recorded Confirmed Escitalopram [Lexapro] 10 mg PO DAILY 07/07/19 07/07/19 Prozasin 2 mg ORAL DAILY 07/07/19 Topiramate [Topamax] 50 mg PO 07/07/19 Hydrocodone/Acetaminophen [[place] 1 each PO Q6H PRN #20 tablet 11/14/19 5-325 Tablet] Naproxen 500 mg PO BID #25 tablet 11/14/19 Albuterol Sulf [Ventolin Hfa 1 - 2 puffs INH Q4HR PRN #1 inhaler 11/22/19 Inhaler] Benzonatate [Tessalon Perle] 100 - 200 mg PO TID PRN #30 capsule 11/22/19 Ondansetron Odt [Zofran] 4 mg TL Q6H PRN #10 tablet 09/13/20 Dicyclomine [Bentyl] 10 mg PO QID PRN #20 cap 12/26/20 Ondansetron Odt [Zofran] 4 mg TL Q6H PRN #15 tablet 12/26/20 Oxycodone HCl/Acetaminophen 1 each PO Q6H PRN #14 tablet 12/26/20 [Percocet 5-325 mg Tablet] - Allergies Allergies/Adverse Reactions: Allergies Allergy/AdvReac Type Severity Reaction Status Date / Time Latex, Natural Rubber Allergy Unknown unknown Verified 12/26/20 13:47 adhesive AdvReac Unknown UNKOWN Verified 12/26/20 13:47 hydrocodone AdvReac Unknown Hallucinati Verified 12/26/20 17:15 ons - Social History Does the pt smoke?: No Smoking Status: Never smoker Does the pt drink ETOH?: Yes Does the pt have substance abuse?: No - Immunizations Immunizations are current?: Yes PD ED PE NORMAL - Vitals Vital signs reviewed: Yes - General General: Alert and oriented X 3, Well developed/nourished, Other (appears in pain on initial exam. ) - Neck Neck: Supple, no meningeal sign, No adenopathy - Cardiac Cardiac: RRR, No murmur - Respiratory Respiratory: Clear bilaterally, Other (no chestwall tednerness. ) - Abdomen Abdomen: Normal bowel sounds, Non distended, No organomegaly, Other (very tender with guarding epigastric and RUQ area. no percussion tednerness. ) - Rectal Rectal: Deferred - Back Back: No CVA TTP - Derm Derm: Normal color, Warm and dry - Extremities Extremities: No edema, No calf tenderness / cord - Neuro Neuro: Alert and oriented X 3, No motor deficit, Normal speech Results - Vitals Vitals: Oxygen O2 Source Room air - Labs Labs: Laboratory Tests 12/26/20 12/26/20 12/26/20 13:52 13:52 14:27 WBC 5.3 RBC 5.23 Hgb 14.4 Hct 43.4 MCV 83.0 MCH 27.5 MCHC 33.2 RDW 12.5 Plt Count 230 MPV 10.0 Neut # (Auto) 3.8 Lymph # (Auto) 0.9 L [place] # (Auto) 0.3 Eos # (Auto) 0.2 Baso # (Auto) 0.0 Absolute Nucleated RBC 0.00 Nucleated RBC % 0.0 Sodium Potassium Chloride Carbon Dioxide Anion Gap BUN Creatinine Estimated GFR (MDRD) Glucose Calcium Total Bilirubin AST ALT Alkaline Phosphatase Total Protein Albumin Globulin Albumin/Globulin Ratio Lipase Urine Color YELLOW Urine Clarity CLEAR Urine pH 8.0 H Ur Specific [place] 1.020 Urine Protein NEGATIVE Urine Glucose (UA) NEGATIVE Urine Ketones NEGATIVE Urine Occult Blood NEGATIVE Urine Nitrite NEGATIVE Urine Bilirubin NEGATIVE Urine Urobilinogen 0.2 (NORMAL) Ur Leukocyte Esterase NEGATIVE Ur Microscopic Review NOT INDICATED Urine Culture Comments NOT INDICATED Urine HCG, Qual NEGATIVE 12/26/20 14:27 WBC RBC Hgb Hct MCV MCH MCHC RDW Plt Count MPV Neut # (Auto) Lymph # (Auto) [place] # (Auto) Eos # (Auto) Baso # (Auto) Absolute Nucleated RBC Nucleated RBC % Sodium 141 Potassium 3.8 Chloride 102 Carbon Dioxide 28 Anion Gap 11.0 BUN 12 Creatinine 0.7 Estimated GFR (MDRD) 89 Glucose 124 H Calcium 9.7 Total Bilirubin 0.6 AST 15 ALT 21 Alkaline Phosphatase 51 Total Protein 8.3 H Albumin 5.0 Globulin 3.3 Albumin/Globulin Ratio 1.5 Lipase 30 Urine Color Urine Clarity Urine pH Ur Specific [place] Urine Protein Urine Glucose (UA) Urine Ketones Urine Occult Blood Urine Nitrite Urine Bilirubin Urine Urobilinogen Ur Leukocyte Esterase Ur Microscopic Review Urine Culture Comments Urine HCG, Qual - Rads (name of study) upper abd U/S Radiology: Prelim report reviewed (no cholecystitis. multiple stones in GB, with 1.4 cm stone immobile in neck. ), See rad report PD MEDICAL DECISION MAKING - ED course Complexity details: reviewed results (stones with immobile one in neck. Likely will need surgical eval in near future. Pt interested in cholecytectomy at this point. ), re-evaluated patient (pain improved in ER. No sigsn of acute cholecystitis. Has had increasing episodes of pain lately, so refer to surgery for discussion. ), considered differential (likely biliary colic. Has immobile stone near neck. No acute cholecystitic changes. ), d/w patient Departure - Departure Disposition: 01 Home, Self Care Clinical Impression: Upper abdominal pain, Biliary colic Condition: Stable Record reviewed to determine appropriate education?: Yes Instructions: ED Gallstone W Biliary Colic Follow-Up: EVERARDO LYNN MD [Primary Care Provider] - Cece Magana MD [Provider Admit Priv/Credential] - Rui Gilbert MD [Provider Admit Priv/Credential] - Prescriptions: Dicyclomine [Bentyl] 10 mg PO QID PRN #20 cap PRN Reason: Abdominal Pain Oxycodone HCl/Acetaminophen [Percocet 5-325 mg Tablet] 1 each PO Q6H PRN #14 tablet PRN Reason: pain Ondansetron Odt [Zofran] 4 mg TL Q6H PRN #15 tablet PRN Reason: Nausea / Vomiting Comments: Small frequent fluids. Low-fat diet. Use mild pain medicine such as Tylenol or ibuprofen if needed for mild pains. Ondansetron if needed for nausea. You can use dicyclomine antispasmodic for gallbladder spasms/pain. Add hydrocodone if needed for worse pain. Follow-up with one of the surgeons locally to discuss indications and pros and cons for gallbladder surgery. Return to the ER if worse episode unresolved by above medications or such. I transmitted your scripts to [facility]. My narcotic instructions I am prescribing a short course of narcotic pain medication for you. These are potentially dangerous and addictive medications that should be used carefully. These medications may constipate you. Take an [id number] stool softener such as docusate twice daily with plenty of water while taking these medications. If you go 24 hours without a bowel movement, take [id number] MiraLAX, per package instructions. Do not drink or drive while taking these medications. If you received narcotic or sedating medications while in the emergency department do not drive for 24 hours. Store this medication in a safe, secure place and out of reach of children. It is a violation of federal law to give or sell this medication to another person or to use in a manner other than prescribed. The ED will not refill narcotic prescriptions, including prescriptions lost or stolen. You can dispose of unwanted medications at the [facility]'s office or at several pharmacies such as [facility]. Discharge Date/Time: 12/26/20 17:31
[2020-12-26 14:04] LABS: HCG UR QUAL NEGATIVE
[2020-12-26] MEDS ORDERED: SODIUM CHLORIDE 0.9% 1,000 ML IV STA (14:27)
[2020-12-26] MEDS ORDERED: HYDROmorphone 1 MG/ML CARPUJECT IVP STA (14:27)
[2020-12-26] MEDS ORDERED: ONDANSETRON 4 MG/2 ML VIAL IVP STA (14:27)
[2020-12-26 14:40] LABS: BASOPHILS % (AUTO) 0.4 %; EOSINOPHILS # (AUTO) 0.2 10^3/uL (0.0-0.7); EOSINOPHILS % (AUTO) 4.1 %; HCT - HEMATOCRIT 43.4 % (37.0-47.0); HGB - HEMOGLOBIN 14.4 g/dL (12.0-16.0); LYMPHOCYTES # (AUTO) 0.9 10^3/uL (1.5-3.5); LYMPHOCYTES % (AUTO) 16.9 %; MEAN CORPUSCULAR HEMOGLOBIN 27.5 pg (27.0-31.0); MEAN CORPUSCULAR HGB CONC 33.2 g/dL (32.0-36.0); MONOCYTES # (AUTO) 0.3 10^3/uL (0.0-1.0); MONOCYTES % (AUTO) 6.2 %; NEUTROPHILS # (AUTO) 3.8 10^3/uL (1.5-6.6); NEUTROPHILS % (AUTO) 71.8 %; PLT - PLATELET COUNT 230 10^3/uL (130-450); RED BLOOD COUNT 5.23 10^6/uL (4.20-5.40); RED CELL DISTRIBUTION WIDTH 12.5 % (12.0-15.0); WHITE BLOOD COUNT 5.3 x10^3/uL (4.8-10.8)
[2020-12-26 14:47] LABS: ALBUMIN/GLOBULIN RATIO 1.5 (1.0-2.2); BILIRUBIN,TOTAL 0.6 mg/dL (0.2-1.0); CALCIUM 9.7 mg/dL (8.5-10.3); CREATININE 0.7 mg/dL (0.4-1.0); POTASSIUM 3.8 mmol/L (3.5-5.0); TOTAL PROTEIN 8.3 g/dL (6.7-8.2)
[2020-12-26] MEDS ORDERED: HYDROmorphone 2 MG/ML VIAL IVP STA (15:45)
[2020-12-26] MEDS ORDERED: KETOROLAC 30 MG/ML VIAL IVP STA (15:46)
--- NOTE | 2020-12-26 16:01 | Ultrasound Report ---
PROCEDURE: Abdomen Limited INDICATIONS: RUQ pain today; known gallstone. TECHNIQUE: Real-time focused scanning was performed of the abdomen, with image documentation. COMPARISON: None available. FINDINGS: AORTA: The visualized abdominal aorta is normal. IVC: The visualized IVC is normal. LIVER: Increased echogenicity, compatible hepatic steatosis. The portal vein is patent. A hypoechoi c lesion is seen in the right hepatic lobe, measuring up to 2.3 cm and demonstrating a thin septation , most consistent with a cyst PANCREAS: The visualized portions of the pancreas are normal. The pancreatic head is seen, measurin g up to 2.2 mm. Gallbladder and biliary tree: The common bile duct measures 5 mm. No gallbladder wall thickening or pericholecystic fluid. Multiple shadowing gallstones are seen, measuring up to 2.9 cm. A 1.4 cm gall stone is seen within the gallbladder neck. RIGHT KIDNEY: Normal in appearance with no hydronephrosis. Measuring 13 cm in craniocaudal dimensio n. The renal cortex thickness measures 1.4 cm. No ascites. IMPRESSION: 1.Cholelithiasis as detailed above. 2.Hepatic steatosis. Reviewed by: Mac Lacey MD on 12/26/2020 4:00 PM PDT Approved by: Mac Lacey MD on 12/26/2020 4:00 PM PDT Station ID: [id number]
[2020-12-26 17:03] VITALS: BP 130/78
== END 2020-12-26 17:31 | disposition home or self-care (01) ==
LOC: ED 13:40
DX: K80.20 Calculus of gallbladder without cholecystitis without obstruction (principal); K76.0 Fatty (change of) liver, not elsewhere classified
CPT/HCPCS: 36415; 76705; 80053; 81003; 81025; 83690; 85025; 96374; 96375; 96376; 99284; J1170; 81001; 87086

== ENCOUNTER 2021-05-27 08:00 | Outpatient (CLI) | payer OTHER | END 2021-05-27 23:59 | disposition home or self-care (01) | LOC: LAB.R 08:00 | PROVIDERS: ATTEND Physician Assistant Medical | DX: N30.00 Acute cystitis without hematuria (principal) | CPT/HCPCS: 87086; 87181 ==

== ENCOUNTER 2021-07-29 18:44 | Emergency (ER) | payer OTHER ==
--- NOTE | 2021-07-29 20:00 | XRAY Report ---
PROCEDURE: Wrist 4 View LT INDICATIONS: injury and pain TECHNIQUE: 4 views of the wrist were acquired. COMPARISON: None FINDINGS: Bones: There is a comminuted intra-articular distal radial fracture with impaction. There is mild dis location of fracture fragments dorsally.. No suspicious bony lesions. Scaphoid view: No scaphoid fracture. Soft tissues: No suspicious soft tissue calcifications. IMPRESSION: Comminuted intra-articular distal radial fracture with impaction. Reviewed by: Ronel Mcintosh MD on 07/29/2021 7:58 PM PDT Approved by: Ronel Mcintosh MD on 07/29/2021 7:58 PM PDT Station ID: [id number]
--- NOTE | 2021-07-29 20:01 | XRAY Report ---
PROCEDURE: Forearm LT INDICATIONS: injury and pain TECHNIQUE: 2 views of the forearm were acquired. COMPARISON: X-ray wrist 07/29/2021 FINDINGS: Bones: Comminuted, mildly displaced intra-articular distal radial fracture. No suspicious bony lesion s. Soft tissues: No suspicious soft tissue calcifications or masses. IMPRESSION: Comminuted intra-articular distal radial fracture. Reviewed by: Ronel Mcintosh MD on 07/29/2021 7:59 PM PDT Approved by: Ronel Mcintosh MD on 07/29/2021 7:59 PM PDT Station ID: [id number]
[2021-07-29] MEDS ORDERED: LIDOCAINE 1%-EPI 1:100000 20 ML MDV SUBQ STA (20:10)
[2021-07-29] MEDS ORDERED: HYDROmorphone 1 MG/ML CARPUJECT IM STA (20:10)
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
[2021-07-29] MEDS ORDERED: ONDANSETRON ODT 4 MG TABLET TL STA (20:36)
[2021-07-29] MEDS ORDERED: oxyCODONE/ACET 5/325 Prepack 4 PO STA (20:55)
[2021-07-29] MEDS ORDERED: ONDANSETRON ODT 4 MG Prepack 2 TL STA (21:11)
[2021-07-29 21:13] VITALS: BP 133/89
== END 2021-07-29 21:19 | disposition home or self-care (01) ==
LOC: ED 18:44
DX: S52.572A Other intraarticular fracture of lower end of left radius, initial encounter for closed fracture (principal); X58.XXXA Exposure to other specified factors, initial encounter; Y93.89 Activity, other specified
CPT/HCPCS: 25605; 73090; 73110; 96372; 99283; J1170; Q0162

== ENCOUNTER 2021-07-31 12:15 | Outpatient (CLI) | payer OTHER ==
--- NOTE | 2021-08-01 09:05 | XRAY Report ---
PROCEDURE: Wrist 3 View LT INDICATIONS: WRIST FRACTURE TECHNIQUE: 3 views of the wrist were acquired. COMPARISON: None FINDINGS: Bones: There is a comminuted fracture of the radial styloid with 3 mm displacement and articular surf mat involvement. Soft tissues: No suspicious soft tissue calcifications. IMPRESSION: Comminuted distal radial styloid fracture with articular surface involvement. Reviewed by: Jamar Fitzgerald on 08/01/2021 9:04 AM PDT Approved by: Jamar Fitzgerald on 08/01/2021 9:04 AM PDT Station ID: [id number]
== END 2021-07-31 23:59 | disposition home or self-care (01) ==
LOC: DI.WOS 12:15
PROVIDERS: ATTEND Orthopaedic Surgery
DX: S52.512D Displaced fracture of left radial styloid process, subsequent encounter for closed fracture with routine healing (principal)

== ENCOUNTER 2021-08-04 11:11 | Day surgery (SDC) | payer OTHER ==
[2021-08-04] MEDS ORDERED: LACTATED RINGERS 1,000 ML IV ONE (12:07)
[2021-08-04] MEDS ORDERED: ATROPINE ABBOJECT 1 MG/10 ML SYRINGE IVP PRN (12:31)
[2021-08-04] MEDS ORDERED: NALOXONE 0.4 MG/ML VIAL IVP PRN (12:31)
[2021-08-04] MEDS ORDERED: METOCLOPRAMIDE 10 MG/2 ML VIAL IVP PRN (12:31)
[2021-08-04] MEDS ORDERED: ePHEDrine 50 MG/ML VIAL IVP PRN (12:31)
[2021-08-04] MEDS ORDERED: ONDANSETRON 4 MG/2 ML VIAL IVP PRN (12:31)
--- NOTE | 2021-08-04 12:31 | ANESTHESIA ---
Pre-Anesthesia VS, & Labs - Diagnosis L radius fracture - Procedure ORIF L radius Vital Signs: Temp Pulse Resp BP Pulse Ox 36.8 C 92 16 136/87 H 98 08/04/21 11:34 08/04/21 11:34 08/04/21 11:34 08/04/21 11:34 08/04/21 11:34 Height: 5 ft 4 in Weight (kg): 120.3 kg Body Mass Index: 45.5 BMI Classification: Morbidly Obese - NPO >8 hours - Is Patient ?: No Home Medications and Allergies Home Medications: Ambulatory Orders Acetaminophen [Tylenol] 1 tab PO PRN PRN 08/01/21 Amitriptyline [Elavil] 1 tab PO DAILY 08/01/21 DULoxetine [Cymbalta] 1 cap PO DAILY 08/01/21 Gabapentin [Neurontin] 2 cap PO DAILY 08/01/21 Meloxicam [Mobic] 2 tab PO DAILY 08/01/21 Active Medications Cefazolin Sodium 3 gm/ Sodium (Chloride) 50 mls @ 100 mls/hr IV ONCE ONE Stop: 08/04/21 12:59 Acetaminophen [Tylenol] 1 tab PO PRN PRN 08/01/21 Amitriptyline [Elavil] 1 tab PO DAILY 08/01/21 DULoxetine [Cymbalta] 1 cap PO DAILY 08/01/21 Gabapentin [Neurontin] 2 cap PO DAILY 08/01/21 Meloxicam [Mobic] 2 tab PO DAILY 08/01/21 Allergies/Adverse Reactions: Allergies Allergy/AdvReac Type Severity Reaction Status Date / Time Latex, Natural Rubber Allergy Unknown unknown Verified 07/29/21 18:56 adhesive AdvReac Unknown UNKOWN Verified 07/29/21 18:56 hydrocodone AdvReac Unknown Hallucinati Verified 07/29/21 18:56 ons Anes History & Medical History - Anesthetic History Anesthesia Complications: reports: No previous complications Family history of Anesthesia Complications: Denies Family history of Malignant Hyperthermia: Denies - Medical History Cardiovascular: reports: None Pulmonary: reports: Asthma Gastrointestinal: reports: Hiatal hernia Urinary: reports: None Musculoskeletal: reports: Osteoarthritis, Fibromyalgia, Chronic back pain Endocrine/Autoimmune: reports: None Blood Disorders: reports: None Skin: reports: None Smoking Status: Never smoker - Surgical History General: reports: Hiatal hernia repair Gynecologic: reports: section, 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, Other Exam General: Alert, Oriented x3, Cooperative Dental: WNL Mouth Openin Fingerbreadth Mallampati classification: III Thyromental Distance: less than 4 cm Respiratory: Lungs clear Cardiovascular: Regular rate Plan Anesthesia Type: General, Supraclavicular Block Consent for Procedure(s) Verified and Reviewed: Yes Code Status: Attempt Resuscitation ASA classification: 3-Severe systemic disease Is this case an emergency?: No
[2021-08-04] MEDS ORDERED: SCOPOLAMINE PATCH TOP ONE (12:47)
[2021-08-04] MEDS ORDERED: PROPOFOL 200 MG/20 ML VIAL IVP ONE ×3 (12:53→16:03)
[2021-08-04] MEDS ORDERED: LIDOCAINE-MPF 2% 5 ML VIAL ONE (12:53)
[2021-08-04] MEDS ORDERED: BUPIVACAINE 0.25% PF 10 ML VIAL ONE (12:53)
[2021-08-04] MEDS ORDERED: ONDANSETRON 4 MG/2 ML VIAL ONE (12:54)
[2021-08-04] MEDS ORDERED: MIDAZOLAM 2 MG/2 ML VIAL ONE (12:54)
[2021-08-04] MEDS ORDERED: DEXAMETHASONE 4 MG/ML VIAL ONE (12:54)
[2021-08-04] MEDS ORDERED: fentaNYL 100 MCG/2 ML VIAL ONE ×2 (12:54→16:24)
[2021-08-04] MEDS ORDERED: ROCURONIUM 50 MG/5 ML VIAL ONE (12:54)
[2021-08-04] MEDS ORDERED: ROPIVACAINE 0.5% PF 20 ML AMPULE ONE (12:55)
[2021-08-04] MEDS ORDERED: LACTATED RINGERS 1,000 ML IV SCH (13:00)
[2021-08-04] MEDS ORDERED: SCOPOLAMINE PATCH TOP SCH (13:00)
[2021-08-04] MEDS ORDERED: CELECOXIB 100 MG CAPSULE PO ONE (13:10)
[2021-08-04] MEDS ORDERED: ACETAMINOPHEN 500 MG TABLET PO ONE (13:10)
[2021-08-04] MEDS ORDERED: KETAMINE 500 MG/10 ML VIAL ONE (13:42)
[2021-08-04] MEDS ORDERED: SODIUM CHLORIDE 0.9% 10 ML VIAL IVP ONE (13:42)
[2021-08-04] MEDS ORDERED: ePHEDrine 50 MG/ML VIAL IVP ONE (14:37)
[2021-08-04] MEDS ORDERED: SUGAMMADEX 200 MG/2 ML VIAL IVP ONE (15:43)
[2021-08-04] MEDS ORDERED: BACITRACIN ZINC OINT 14 GM TOP ONE (15:56)
[2021-08-04] MEDS ORDERED: BACITRACIN ZINC OINT 1 PACKET TOP ONE (16:02)
[2021-08-04] MEDS ORDERED: LACTATED RINGERS 200 ML IV ONE (16:09)
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
[2021-08-04] MEDS: fentaNYL 100 MCG/2 ML VIAL IVP PRN ×2 (16:15→16:47)
[2021-08-04] MEDS: HYDROmorphone 0.5 MG/0.5 ML SYRINGE ONE ×2 (16:23→16:54)
[2021-08-04] MEDS ORDERED: HYDROmorphone 0.5 MG/0.5 ML SYRINGE IVP PRN (16:30)
--- NOTE | 2021-08-04 16:52 | XRAY Report ---
PROCEDURE: OR C-Arm Procedure INDICATIONS: WRIST FX TECHNIQUE: 4. Rest of fluoroscopy images. COMPARISON: X-ray of the left wrist, 3 views, 07/31/2021. FINDINGS: There are postsurgical changes related to ORIF of comminuted distal radial metaphyseal frac ture. Alignment is improved. IMPRESSION: ORIF of distal radial metaphyseal fracture. Reviewed by: Brenda Lal MD on 08/04/2021 4:50 PM PDT Approved by: Brenda Lal MD on 08/04/2021 4:50 PM PDT Station ID: [id number]
[2021-08-04] MEDS ORDERED: oxyCODONE 5 MG TABLET PO PRN (17:02)
[2021-08-04] MEDS ORDERED: oxyCODONE 5 MG TABLET ONE (17:20)
--- NOTE | 2021-08-04 17:28 | ANESTHESIA POST OP EVALUATION ---
Anesthesia Post Eval - Post Anesthesia Eval Vitals: Last Vital Signs Temp 36.4 C L 08/04/21 17:10 Pulse 78 08/04/21 17:10 Resp 17 08/04/21 17:10 BP 107/75 08/04/21 17:10 Pulse Ox 97 08/04/21 17:10 CV Function Including HR & BP: Stable Pain Control: Satisfactory Nausea & Vomiting: Negative Mental Status: Baseline Respiratory Status: Airway Patent Hydration Status: Satisfactory Anesthesia Complications: None
[2021-08-04 17:31] VITALS: BP 102/85
== END 2021-08-04 11:12 | disposition home or self-care (01) ==
LOC: SDS 11:11
PROVIDERS: ATTEND Orthopaedic Surgery
DX: S52.562A Barton's fracture of left radius, initial encounter for closed fracture (principal); E66.01 Morbid (severe) obesity due to excess calories; Z68.42 Body mass index [BMI] 45.0-49.9, adult; J45.909 Unspecified asthma, uncomplicated
CPT/HCPCS: 25607; A9270; C1713; J1170; J3490; J7040; J7120

== ENCOUNTER 2021-09-18 08:00 | Outpatient (CLI) | payer OTHER ==
--- NOTE | 2021-09-18 17:06 | XRAY Report ---
PROCEDURE: Wrist 3 View LT INDICATIONS: WRIST FX TECHNIQUE: 3 views of the wrist were acquired. COMPARISON: 07/29/2021 and 07/31/2021 FINDINGS: Bones: Status post ORIF of comminuted, intra-articular distal radius fracture with placement of ortho pedic plate and screws in the distal radius and third metacarpal. There is near-anatomic alignment of the radius fracture following ORIF. Soft tissues: No suspicious soft tissue calcifications. IMPRESSION: Expected postsurgical change from ORIF of distal left radius fracture. Reviewed by: Ольга Gary MD, PhD on 09/18/2021 5:05 PM PDT Approved by: Ольга Gary MD, PhD on 09/18/2021 5:05 PM PDT Station ID: [id number]
== END 2021-09-18 23:59 | disposition home or self-care (01) ==
LOC: DI.WOS 08:00
PROVIDERS: ATTEND Orthopaedic Surgery
DX: S52.562A Barton's fracture of left radius, initial encounter for closed fracture (principal)

== ENCOUNTER 2021-10-02 08:00 | Outpatient (CLI) | payer OTHER ==
[2021-10-02 17:52] LABS: BASOPHILS % (AUTO) 0.4 %; EOSINOPHILS # (AUTO) 1.1 10^3/uL (0.0-0.7); EOSINOPHILS % (AUTO) 14.8 %; HCT - HEMATOCRIT 43.4 % (37.0-47.0); HGB - HEMOGLOBIN 13.9 g/dL (12.0-16.0); LYMPHOCYTES # (AUTO) 1.2 10^3/uL (1.5-3.5); LYMPHOCYTES % (AUTO) 16.1 %; MEAN CORPUSCULAR HEMOGLOBIN 26.7 pg (27.0-31.0); MEAN CORPUSCULAR VOLUME 83.5 fL (81.0-99.0); MEAN PLATELET VOLUME 10.4 fL (7.9-10.8); MONOCYTES # (AUTO) 0.4 10^3/uL (0.0-1.0); MONOCYTES % (AUTO) 4.6 %; NEUTROPHILS # (AUTO) 4.8 10^3/uL (1.5-6.6); NEUTROPHILS % (AUTO) 63.7 %; PLT - PLATELET COUNT 244 10^3/uL (130-450); RED CELL DISTRIBUTION WIDTH 12.5 % (12.0-15.0); WHITE BLOOD COUNT 7.6 x10^3/uL (4.8-10.8)
[2021-10-02 17:54] LABS: SLIDE REVIEW? Indicated
[2021-10-02 18:02] LABS: ALBUMIN 4.7 g/dL (3.2-5.5); ALBUMIN/GLOBULIN RATIO 1.6 (1.0-2.2); BILIRUBIN,TOTAL 0.4 mg/dL (0.2-1.0); CALCIUM 9.6 mg/dL (8.5-10.3); CREATININE 0.8 mg/dL (0.4-1.0); POTASSIUM 4.1 mmol/L (3.5-5.0); TOTAL PROTEIN 7.7 g/dL (6.7-8.2)
[2021-10-02 18:28] LABS: DIFFERENTIAL COMMENT MANUAL=AUTO DIFF; PLATELET ESTIMATE, MANUAL NORMAL (130-450,000) (NORMAL); PLATELET MORPHOLOGY NORMAL APPEARANCE (NORMAL); RBC MORPHOLOGY (MULTIPLE) NORMAL APPEARANCE (NORMAL); WBC MORPHOLOGY (MULTIPLE) NORMAL APPEARANCE (NORMAL)
== END 2021-10-02 23:59 | disposition home or self-care (01) ==
LOC: LAB.N 08:00
PROVIDERS: ATTEND Nurse Practitioner
DX: K52.9 Noninfective gastroenteritis and colitis, unspecified (principal)
CPT/HCPCS: 36415; 80053; 82150; 83690; 85025

== ENCOUNTER 2021-11-11 10:55 | Outpatient (CLI) | payer OTHER ==
--- NOTE | 2021-11-12 11:10 | Mammography Report ---
UNILATERAL LEFT DIGITAL DIAGNOSTIC MAMMOGRAM 3D/2D: 11/11/2021 CLINICAL: Patient returns today to evaluate a focal asymmetry in the left breast. Comparison is made to exams dated: 10/14/2021 mammogram - [facility], 11/15/2018 mammo gram - [facility], 10/03/2015 mammogram, 03/06/2015 mammogram, and 02/05/2015 mammogram - [facility]. The left breast is almost entirely fatty (category a/<25% glandular tissue). There is a 4 mm oval equal density focal asymmetry with an obscured and indistinct margin in the left breast at 5 o'clock middle depth. This is seen in additional views. No other significant masses or calcifications are seen in the breast. IMPRESSION: INCOMPLETE: NEEDS ADDITIONAL IMAGING EVALUATION The 4 mm oval equal density focal asymmetry in the left breast most likely is a lymph node but remain s indeterminate. An ultrasound is recommended. This was performed immediately following this exam. Based on the Tyrer Cuzick model (a risk assessment model) the patients lifetime risk is 3.7% and her 10 year risk is 0.8%. According to the ACR, ACS, and NCCN guidelines, an annual breast MRI exam hoa g with mammogram is recommended if the patients lifetime risk is 20% or greater. This exam was interpreted at Station ID: [id number]. NOTE: For mammograms, a report in lay terms will be sent to the patient. Approximately 15% of breast malignancies will not be visualized mammographically. In the management of a palpable breast mass, a negative mammogram must not discourage biopsy of a clinically suspicious lesion. Electronically Signed By: Isabel grey/:11/11/2021 12:03:31 ACR BI-RADS Category 0: Incomplete 3340F PARENCHYMAL PATTERN: (F) - The breast(s) demonstrate(s) diffuse fatty replacement. BI-RADS CATEGORY: (0) - 0 Ultrasound [id number] Immediate follow-up LATERALITY: (B)
--- NOTE | 2021-11-12 11:10 | Ultrasound Report ---
LIMITED ULTRASOUND OF LEFT BREAST: 11/11/2021 CLINICAL: Patient returns today to evaluate an asymmetry in the left breast. Comparison is made to exams dated: 11/11/2021 mammogram, 10/14/2021 mammogram - [facility], 11/29/2018 ultrasound, 11/29/2018 ultrasound, 11/15/2018 mammogram - [facility], d 10/03/2015 mammogram - [facility]. Real-time ultrasound of the left breast 5 o'clock region was performed. Verma scale images of the re al-time examination were reviewed. No significant abnormalities were seen sonographically in the left breast. Specifically, no finding to correspond to the patient's 4 mm mammographic abnormality. IMPRESSION: PROBABLY BENIGN There is no sonographic correlate to the patient's mammographic abnormality. It is probably a benign lymph node. A follow-up left mammogram and an ultrasound in 6 months is recommended to demonstrate stability. Findings and recommendations were conveyed to the patient at time of exam. This exam was interpreted at Station ID: [id number]. Electronically Signed By: Isabel grey/:11/11/2021 12:30:01 Ultrasound BI-RADS: 3 Probably benign BI-RADS CATEGORY: (3) - 3 Mammo and [place] [id number] 6 month follow-up LATERALITY: (L)
== END 2021-11-11 10:56 | disposition home or self-care (01) ==
LOC: DI 10:55
PROVIDERS: ATTEND Family Medicine
DX: R92.8 Other abnormal and inconclusive findings on diagnostic imaging of breast (principal)

== ENCOUNTER 2021-11-19 12:28 | Outpatient (CLI) | payer OTHER ==
--- NOTE | 2021-11-19 19:44 | XRAY Report ---
PROCEDURE: Wrist 3 View LT INDICATIONS: TAPIA'S FX OF L RADIUS TECHNIQUE: 3 views of the wrist were acquired. COMPARISON: Left wrist radiographs 10/16/2021 FINDINGS: Bones: Postsurgical changes are again seen from prior fracture fixation with metallic killian extending f rom the distal radius to the third metacarpal. Metallic hardware is intact with unchanged alignment. Soft tissues: No suspicious soft tissue calcifications. IMPRESSION: Stable postoperative changes from distal radial fracture fixation with unchanged alignment. Reviewed by: Scott Ba MD on 11/19/2021 6:43 PM LARISA Approved by: Scott Ba MD on 11/19/2021 6:43 PM LARISA Station ID: [id number]
== END 2021-11-19 12:29 | disposition home or self-care (01) ==
LOC: DI.N 12:28
PROVIDERS: ATTEND Orthopaedic Surgery
DX: S52.562A Barton's fracture of left radius, initial encounter for closed fracture (principal)

== ENCOUNTER 2022-01-20 15:42 | Outpatient (CLI) | payer OTHER ==
--- NOTE | 2022-01-20 17:38 | XRAY Report ---
PROCEDURE: Wrist 3 View LT INDICATIONS: LEFT WRIST FRACTURE TECHNIQUE: 3 views of the wrist were acquired. COMPARISON: 11/19/2021 FINDINGS: Bones: Dorsal fixation plate has been removed. There is persistent lucency through the distal radial fracture. Generalized decreased osseous mineralization noted. Persistent fixation screw holes noted Soft tissues: No suspicious soft tissue calcifications. IMPRESSION: Healing comminuted distal radial fracture with persistent lucency. Hardware removed. Reviewed by: Wander Squires MD on 01/20/2022 4:36 PM [place] Approved by: Wander Squires MD on 01/20/2022 4:36 PM AKST Station ID: [id number]
== END 2022-01-20 15:43 | disposition home or self-care (01) ==
LOC: DI.WOS 15:42
PROVIDERS: ATTEND Orthopaedic Surgery
DX: S52.562D Barton's fracture of left radius, subsequent encounter for closed fracture with routine healing (principal)

== ENCOUNTER 2022-02-24 14:41 | Outpatient (CLI) | payer OTHER ==
--- NOTE | 2022-02-24 16:24 | XRAY Report ---
PROCEDURE: Wrist 3 View LT INDICATIONS: LEFT WRIST FRACTURE TECHNIQUE: 3 views of the wrist were acquired. COMPARISON: 01/20/2022 FINDINGS: Bones: Postsurgical changes compatible with prior ORIF of distal radius fracture. Orthopedic hardwar e has been removed. Persistent cortical lucency in the distal radius is stable compared to prior exam . No acute fractures or dislocations. No suspicious bony lesions. Soft tissues: No suspicious soft tissue calcifications. IMPRESSION: Persistent cortical lucency in the distal radius stable compared to 01/20/2022. Reviewed by: Ольга Gary MD, PhD on 02/24/2022 4:22 PM PST Approved by: Ольга Gary MD, PhD on 02/24/2022 4:[address] [facility] Station ID: [id number]
== END 2022-02-24 14:42 | disposition home or self-care (01) ==
LOC: DI.WOS 14:41
PROVIDERS: ATTEND Orthopaedic Surgery
DX: S52.562A Barton's fracture of left radius, initial encounter for closed fracture (principal)

== ENCOUNTER 2022-04-27 16:35 | Outpatient (CLI) | payer OTHER ==
--- NOTE | 2022-04-27 13:33 | XRAY Report ---
PROCEDURE: Wrist 3 View LT INDICATIONS: WRIST FRACTURE TECHNIQUE: 3 views of the wrist were acquired. COMPARISON: Left wrist radiographs 02/24/2022, 01/20/2022, 11/19/2021 FINDINGS: Bones: Prior distal radius fracture appears less conspicuous compared to before. Alignment is not sig nificantly changed. Postsurgical changes of the radius and third metacarpal redemonstrated. Soft tissues: No suspicious soft tissue calcifications. IMPRESSION: Prior distal radius fracture appears less conspicuous compared to before. Alignment is not significan tly changed. If symptoms persist, follow-up radiographs and/or CT or MRI may be helpful for further evaluation. Reviewed by: Scott Chaney MD on 04/27/2022 1:32 PM PST Approved by: Scott Chaney MD on 04/27/2022 1:32 PM PST Station ID: [id number]
== END 2022-04-27 16:38 | disposition home or self-care (01) ==
LOC: DI.WOS 16:35
PROVIDERS: ATTEND Orthopaedic Surgery
DX: S52.562D Barton's fracture of left radius, subsequent encounter for closed fracture with routine healing (principal)

== ENCOUNTER 2022-07-03 12:28 | Outpatient (CLI) | payer OTHER ==
--- NOTE | 2022-07-06 12:53 | Ultrasound Report ---
LIMITED ULTRASOUND OF LEFT BREAST: 07/03/2022 CLINICAL: Patient returns today to evaluate a focal asymmetry in the left breast. Comparison is made to exams dated: 07/03/2022 mammogram, 11/11/2021 ultrasound, 11/11/2021 mammogram, mammogram - [facility], 11/29/2018 ultrasound, and 11/29/2018 ultrasound - [facility]. Color flow and real-time ultrasound of the left breast 3-5 o'clock region were performed on the areas of interest. Verma scale images of the real-time examination were reviewed. IMPRESSION: PROBABLY BENIGN There is no abnormality seen in the left breast to correspond with the mammographic asymmetry. A follow-up mammogram and an ultrasound in 6 months is recommended to demonstrate stability. This exam was interpreted at Station ID: [id number]. Electronically Signed By: Nabila Medina M.D. lk/:07/03/2022 14:03:58 Ultrasound BI-RADS: 3 Probably benign BI-RADS CATEGORY: (3) - 3 Mammo and US [id number] 6 month follow-up LATERALITY: (B)
--- NOTE | 2022-07-06 12:53 | Mammography Report ---
UNILATERAL LEFT DIGITAL DIAGNOSTIC MAMMOGRAM 3D/2D: 07/03/2022 CLINICAL: Patient returns for a 6 month follow up of the left breast. Comparison is made to exams dated: 11/11/2021 mammogram, 10/14/2021 mammogram - [facility], 11/15/2018 mammogram - [facility], 10/03/2015 mammogram, and 03/06/2015 mammogram - [facility]. The left breast is almost entirely fatty (category a/<25% glandular tissue). There is a focal asymmetry in the left breast at 4 o'clock middle depth. No other significant masses or calcifications are seen in the breast. IMPRESSION: INCOMPLETE: NEEDS ADDITIONAL IMAGING EVALUATION The focal asymmetry in the left breast is indeterminate. A targeted ultrasound of the left breast is recommended and will be performed immediately following this exam. Based on the Tyrer Cuzick model (a risk assessment model) the patients lifetime risk is 3.7% and her 10 year risk is 0.8%. According to the ACR, ACS, and NCCN guidelines, an annual breast MRI exam hoa g with mammogram is recommended if the patients lifetime risk is 20% or greater. This exam was interpreted at Station ID: [id number]. NOTE: For mammograms, a report in lay terms will be sent to the patient. Approximately 15% of breast malignancies will not be visualized mammographically. In the management of a palpable breast mass, a negative mammogram must not discourage biopsy of a clinically suspicious lesion. Electronically Signed By: Nabila Medina M.D. lk/:07/03/2022 13:19:34 ACR BI-RADS Category 0: Incomplete 3340F PARENCHYMAL PATTERN: (F) - The breast(s) demonstrate(s) diffuse fatty replacement. BI-RADS CATEGORY: (0) - 0 Ultrasound [id number] Immediate follow-up LATERALITY: (B)
== END 2022-07-03 12:29 | disposition home or self-care (01) ==
LOC: DI 12:28
PROVIDERS: ATTEND Family Medicine
DX: R92.8 Other abnormal and inconclusive findings on diagnostic imaging of breast (principal)

== ENCOUNTER 2022-08-18 13:30 | Outpatient (CLI) | payer OTHER ==
--- NOTE | 2022-08-18 15:41 | XRAY Report ---
PROCEDURE: Chest 2 View X-Ray INDICATIONS: Weight loss. Cough. TECHNIQUE: 2 views of the chest were acquired. COMPARISON: 09/13/2020. FINDINGS: Surgical changes and devices: None. Lungs and pleura: No pleural effusions or pneumothorax. Lungs are clear. Mediastinum: Mediastinal contours appear normal. Heart size is normal. Bones and chest wall: No suspicious bony lesions. Overlying soft tissues appear unremarkable. IMPRESSION: No acute cardiopulmonary process. Reviewed by: Ольга Gary MD, PhD on 08/18/2022 3:39 PM PDT Approved by: Ольга Gary MD, PhD on 08/18/2022 3:39 PM PDT Station ID: [id number]
== END 2022-08-18 13:45 | disposition home or self-care (01) ==
LOC: DI.N 13:30
PROVIDERS: ATTEND Physician Assistant
DX: K52.9 Noninfective gastroenteritis and colitis, unspecified (principal); R42 Dizziness and giddiness; R05.9 Cough, unspecified
CPT/HCPCS: 36415; 80053; 83690; 85025

== ENCOUNTER 2022-08-18 14:00 | Outpatient (CLI) | payer OTHER ==
[2022-08-18 17:59] LABS: BASOPHILS % (AUTO) 0.3 %; EOSINOPHILS # (AUTO) 0.2 10^3/uL (0.0-0.7); EOSINOPHILS % (AUTO) 2.2 %; HCT - HEMATOCRIT 42.6 % (37.0-47.0); HGB - HEMOGLOBIN 13.8 g/dL (12.0-16.0); LYMPHOCYTES % (AUTO) 14.2 %; MEAN CORPUSCULAR HEMOGLOBIN 26.7 pg (27.0-31.0); MEAN CORPUSCULAR HGB CONC 32.4 g/dL (32.0-36.0); MEAN CORPUSCULAR VOLUME 82.6 fL (81.0-99.0); MEAN PLATELET VOLUME 11.3 fL (7.9-10.8); MONOCYTES # (AUTO) 0.4 10^3/uL (0.0-1.0); MONOCYTES % (AUTO) 6.1 %; NEUTROPHILS # (AUTO) 5.3 10^3/uL (1.5-6.6); NEUTROPHILS % (AUTO) 76.8 %; PLT - PLATELET COUNT 220 10^3/uL (130-450); RED BLOOD COUNT 5.16 10^6/uL (4.20-5.40); RED CELL DISTRIBUTION WIDTH 12.4 % (12.0-15.0); WHITE BLOOD COUNT 6.8 x10^3/uL (4.8-10.8)
[2022-08-18 18:18] LABS: ALBUMIN 3.9 g/dL (3.2-5.5); ALBUMIN/GLOBULIN RATIO 1.1 (1.0-2.2); BILIRUBIN,TOTAL 0.8 mg/dL (0.2-1.0); CALCIUM 9.2 mg/dL (8.5-10.3); CREATININE 0.6 mg/dL (0.4-1.0); POTASSIUM 3.7 mmol/L (3.5-5.0); TOTAL PROTEIN 7.5 g/dL (6.7-8.2)
== END 2022-08-18 14:15 | disposition home or self-care (01) ==
LOC: LAB.N 14:00
PROVIDERS: ATTEND Physician Assistant
DX: K52.9 Noninfective gastroenteritis and colitis, unspecified (principal)
CPT/HCPCS: 36415; 80053; 83690; 85025

== ENCOUNTER 2022-08-20 08:00 | Outpatient (CLI) | payer OTHER ==
[2022-08-25 15:09] LABS: OVA + PARASITE EXAM Final report (.)
== END 2022-08-20 23:59 | disposition home or self-care (01) ==
LOC: LAB.R 08:00
PROVIDERS: ATTEND Physician Assistant
DX: K52.9 Noninfective gastroenteritis and colitis, unspecified (principal)
CPT/HCPCS: 87045; 87046; 87177; 87427; 87493

== ENCOUNTER 2022-11-03 15:37 | Outpatient (CLI) | payer OTHER ==
--- NOTE | 2022-11-04 14:23 | XRAY Report ---
PROCEDURE: Wrist 3 View LT INDICATIONS: LEFT WRIST FX TECHNIQUE: 3 views of the wrist were acquired. COMPARISON: X-ray wrist 04/27/2022 FINDINGS: Bones: Distal radial deformity consistent with prior fracture. Minimal fracture lucency persists. Th ere is widening of scapholunate junction slightly more prominent measuring 3 mm. Soft tissues: No suspicious soft tissue calcifications or masses. IMPRESSION: Continued interval healing with subtle residual fracture lucencies of distal radial fracture. Scaphol unate widening is present slightly more prominent when compared to prior exam. Reviewed by: Ronel Mcintosh MD on 11/04/2022 2:22 PM PDT Approved by: Ronel Mcintosh MD on 11/04/2022 2:22 PM PDT Station ID: [id number]
== END 2022-11-03 23:59 | disposition home or self-care (01) ==
LOC: DI.WOS 15:37
PROVIDERS: ATTEND Orthopaedic Surgery
DX: S52.562D Barton's fracture of left radius, subsequent encounter for closed fracture with routine healing (principal)

== ENCOUNTER 2023-02-08 10:45 | Outpatient (CLI) | payer OTHER ==
[2023-02-08 18:05] LABS: BASOPHILS % (AUTO) 0.7 %; EOSINOPHILS # (AUTO) 0.1 10^3/uL (0.0-0.7); EOSINOPHILS % (AUTO) 3.1 %; HCT - HEMATOCRIT 44.2 % (37.0-47.0); HGB - HEMOGLOBIN 13.9 g/dL (12.0-16.0); LYMPHOCYTES % (AUTO) 22.5 %; MEAN CORPUSCULAR HEMOGLOBIN 26.4 pg (27.0-31.0); MEAN CORPUSCULAR HGB CONC 31.4 g/dL (32.0-36.0); MEAN CORPUSCULAR VOLUME 83.9 fL (81.0-99.0); MEAN PLATELET VOLUME 10.7 fL (7.9-10.8); MONOCYTES # (AUTO) 0.3 10^3/uL (0.0-1.0); MONOCYTES % (AUTO) 6.7 %; NEUTROPHILS % (AUTO) 66.8 %; PLT - PLATELET COUNT 243 10^3/uL (130-450); RED BLOOD COUNT 5.27 10^6/uL (4.20-5.40); RED CELL DISTRIBUTION WIDTH 12.7 % (12.0-15.0); WHITE BLOOD COUNT 4.5 x10^3/uL (4.8-10.8)
[2023-02-08 18:24] LABS: ALBUMIN 4.8 g/dL (3.2-5.5); ALBUMIN/GLOBULIN RATIO 2.1 (1.0-2.2); BILIRUBIN,TOTAL 0.6 mg/dL (0.2-1.0); CREATININE 0.6 mg/dL (0.6-1.3); POTASSIUM 4.2 mmol/L (3.5-4.5); TOTAL PROTEIN 7.1 g/dL (6.4-8.9)
== END 2023-02-08 11:00 | disposition home or self-care (01) ==
LOC: LAB.N 10:45
PROVIDERS: ATTEND Physician Assistant Medical
DX: R10.32 Left lower quadrant pain (principal)
CPT/HCPCS: 36415; 80053; 83690; 85025

== ENCOUNTER 2023-02-08 11:00 | Outpatient (CLI) | payer OTHER ==
--- NOTE | 2023-02-08 15:10 | XRAY Report ---
PROCEDURE: Abdomen 1 View X-Ray INDICATIONS: LLQ ABDOMINAL PAIN TECHNIQUE: One view of the abdomen acquired. COMPARISON: None. FINDINGS: Surgical changes and devices: None. Bowel: Bowel gas pattern is normal. Soft tissues: No suspicious abdominal calcifications. Visualized solid organ contours appear normal in size. Bones: No suspicious bony lesions. IMPRESSION: No acute abdominal pathology. Reviewed by: Eddie Andrews MD on 02/08/2023 3:09 PM PST Approved by: Eddie Andrews MD on 02/08/2023 3:09 PM PST Station ID: [id number]
== END 2023-02-08 11:15 | disposition home or self-care (01) ==
LOC: DI.N 11:00
PROVIDERS: ATTEND Physician Assistant Medical
DX: R10.32 Left lower quadrant pain (principal)
CPT/HCPCS: 36415; 80053; 83690; 85025

== ENCOUNTER 2023-02-12 09:00 | Emergency (ER) | payer OTHER ==
[2023-02-12 09:47] LABS: BASOPHILS % (AUTO) 0.9 %; EOSINOPHILS # (AUTO) 0.3 10^3/uL (0.0-0.7); EOSINOPHILS % (AUTO) 5.6 %; HCT - HEMATOCRIT 43.5 % (37.0-47.0); LYMPHOCYTES # (AUTO) 1.3 10^3/uL (1.5-3.5); LYMPHOCYTES % (AUTO) 27.5 %; MEAN CORPUSCULAR HEMOGLOBIN 26.6 pg (27.0-31.0); MEAN CORPUSCULAR HGB CONC 32.2 g/dL (32.0-36.0); MEAN CORPUSCULAR VOLUME 82.5 fL (81.0-99.0); MEAN PLATELET VOLUME 9.9 fL (7.9-10.8); MONOCYTES # (AUTO) 0.4 10^3/uL (0.0-1.0); MONOCYTES % (AUTO) 8.6 %; NEUTROPHILS # (AUTO) 2.7 10^3/uL (1.5-6.6); PLT - PLATELET COUNT 264 10^3/uL (130-450); RED BLOOD COUNT 5.27 10^6/uL (4.20-5.40); RED CELL DISTRIBUTION WIDTH 12.4 % (12.0-15.0); WHITE BLOOD COUNT 4.7 x10^3/uL (4.8-10.8)
[2023-02-12 09:58] LABS: ALBUMIN 4.8 g/dL (3.2-5.5); BILIRUBIN,TOTAL 0.4 mg/dL (0.2-1.0); CALCIUM 9.7 mg/dL (8.5-10.3); CREATININE 0.7 mg/dL (0.6-1.3); POTASSIUM 3.7 mmol/L (3.5-4.5); TOTAL PROTEIN 7.2 g/dL (6.4-8.9)
[2023-02-12 12:29] LABS: BILIRUBIN,URINE NEGATIVE (NEGATIVE); GLUCOSE, URINE (UA) NEGATIVE (NEGATIVE); KETONES,URINE (UA) NEGATIVE (NEGATIVE); LEUKOCYTE ESTERASE, URINE NEGATIVE (NEGATIVE); NITRITE,URINE NEGATIVE (NEGATIVE); OCCULT BLOOD,URINE NEGATIVE (NEGATIVE); PROTEIN,URINE NEGATIVE (NEGATIVE); UROBILINOGEN,URINE 0.2 (NORMAL) E.U./dL (NORMAL)
[2023-02-12] MEDS ORDERED: ONDANSETRON 4 MG/2 ML VIAL IVP STA (12:29)
[2023-02-12] MEDS ORDERED: SODIUM CHLORIDE 0.9% 1,000 ML IV STA (12:29)
[2023-02-12] MEDS ORDERED: HYDROmorphone 1 MG/ML CARPUJECT IVP STA (12:29)
[2023-02-12 12:30] LABS: CLARITY,URINE CLEAR (CLEAR)
[2023-02-12] MEDS ORDERED: fentaNYL 100 MCG/2 ML VIAL IVP STA (12:31)
--- NOTE | 2023-02-12 12:41 | ED Physician Documentation ---
History of Present Illness - Stated complaint Stated Complaint: LT PX,NAUSEA,KNEE PX - Chief complaint Chief Complaint: Abd Pain - Additonal information Additional information: 52-year-old female presents to the emergency department for evaluation of several weeks intermittent left upper quadrant abdominal pain. Some nausea and occasional vomiting. No diarrhea. No fevers. Denies cough or congestion. She does have a complex past abdominal surgical history which includes myomectomy, hysterectomy hernia status post mesh repair failure. Review of Systems Constitutional: denies: Fever, Chills Cardiac: reports: Reviewed and negative Respiratory: reports: Reviewed and negative GI: reports: Abdominal Pain, Nausea, Vomiting : reports: Reviewed and negative Skin: reports: Reviewed and negative Musculoskeletal: reports: Reviewed and negative PD PAST MEDICAL HISTORY - Past Medical History Past Medical History: Yes Cardiovascular: None Respiratory: Asthma Endocrine/Autoimmune: None GI: Hiatal hernia : None HEENT: Chronic sinusitis, Dental implants Psych: Anxiety, Bipolar disorder Musculoskeletal: Osteoarthritis, Fibromyalgia, Chronic back pain Derm: None - Past Surgical History Past Surgical History: Yes General: Hiatal hernia repair Ortho: Other /MED ADMIN: section, 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, Other - Present Medications Home Medications: Ambulatory Orders Medication Instructions Recorded Confirmed Albuterol Sulf [Ventolin Hfa 1 - 2 puffs INH Q4HR PRN #1 inhaler 11/22/19 11/25/21 Inhaler] Acetaminophen [Tylenol] 1 tab PO PRN PRN 08/01/21 11/25/21 DULoxetine [Cymbalta] 1 cap PO DAILY 08/01/21 11/25/21 Gabapentin [Neurontin] 2 cap PO DAILY 08/01/21 12/01/21 Meloxicam [Mobic] 2 tab PO DAILY 08/01/21 12/01/21 oxyCODONE [Roxicodone] 5 mg PO Q4-6H PRN #15 tablet 12/01/21 - Allergies Allergies/Adverse Reactions: Allergies Allergy/AdvReac Type Severity Reaction Status Date / Time Latex, Natural Rubber Allergy Unknown unknown Verified 02/12/23 09:30 adhesive AdvReac Unknown UNKOWN Verified 02/12/23 09:30 hydrocodone AdvReac Unknown Hallucinati Verified 02/12/23 09:30 ons - Social History Does the pt smoke?: No Smoking Status: Never smoker Does the pt drink ETOH?: Yes Does the pt have substance abuse?: Yes Substance Use and Type: CBD oil / Products - Immunizations Immunizations are current?: Yes - POLST Patient has POLST: No PD ED PE NORMAL - General General: Alert and oriented X 3, No acute distress, Well developed/nourished (obese) - HEENT HEENT: PERRL - Cardiac Cardiac: RRR, No murmur - Respiratory Respiratory: No respiratory distress - Abdomen Abdomen: Normal bowel sounds, Soft. No: Non tender (Left upper quadrant and left flank tenderness. No guarding or rebound. Large lower abdominal hernia mildly tender but no swelling erythema or firmness indicative of incarceration) - Back Back: No CVA TTP - Derm Derm: Normal color - Extremities Extremities: No deformity - Neuro Neuro: Alert and oriented X 3, trimmer operator three knife 2-12 intact Eye Opening: Spontaneous Motor: Obeys Commands Verbal: Oriented GCS Score: 15 Results - Vitals Vitals: Vital Signs - 24 hr 02/12/23 02/12/23 02/12/23 09:23 09:30 12:25 Temperature 36.5 C 36.5 C 36.5 C Heart Rate 90 90 88 Respiratory 16 16 16 Rate Blood Pressure 153/93 H 153/93 H 140/88 H O2 Saturation 99 99 100 02/12/23 02/12/23 14:00 16:00 Temperature 36.5 C Heart Rate 86 61 Respiratory 16 16 Rate Blood Pressure 130/86 H 168/88 H O2 Saturation 100 95 Oxygen O2 Source Room air - Labs Labs: Laboratory Tests 02/12/23 02/12/23 02/12/23 09:41 09:41 12:20 WBC 4.7 L RBC 5.27 Hgb 14.0 Hct 43.5 MCV 82.5 MCH 26.6 L MCHC 32.2 RDW 12.4 Plt Count 264 MPV 9.9 Neut # (Auto) 2.7 Lymph # (Auto) 1.3 L [place] # (Auto) 0.4 Eos # (Auto) 0.3 Baso # (Auto) 0.0 Absolute Nucleated RBC 0.00 Nucleated RBC % 0.0 Sodium 141 Potassium 3.7 Chloride 103 Carbon Dioxide 30 Anion Gap 8.0 BUN 13 Creatinine 0.7 Estimated GFR (MDRD) 88 L Glucose 112 H Calcium 9.7 Total Bilirubin 0.4 AST 12 ALT 9 L Alkaline Phosphatase 60 Total Protein 7.2 Albumin 4.8 Globulin 2.4 Albumin/Globulin Ratio 2.0 Lipase 68 Urine Color YELLOW Urine Clarity CLEAR Urine pH 6.0 Ur Specific [place] 1.010 Urine Protein NEGATIVE Urine Glucose (UA) NEGATIVE Urine Ketones NEGATIVE Urine Occult Blood NEGATIVE Urine Nitrite NEGATIVE Urine Bilirubin NEGATIVE Urine Urobilinogen 0.2 (NORMAL) Ur Leukocyte Esterase NEGATIVE Ur Microscopic Review NOT INDICATED Urine Culture Comments NOT INDICATED Urine HCG, Qual 02/12/23 12:20 WBC RBC Hgb Hct MCV MCH MCHC RDW Plt Count MPV Neut # (Auto) Lymph # (Auto) [place] # (Auto) Eos # (Auto) Baso # (Auto) Absolute Nucleated RBC Nucleated RBC % Sodium Potassium Chloride Carbon Dioxide Anion Gap BUN Creatinine Estimated GFR (MDRD) Glucose Calcium Total Bilirubin AST ALT Alkaline Phosphatase Total Protein Albumin Globulin Albumin/Globulin Ratio Lipase Urine Color Urine Clarity Urine pH Ur Specific [place] Urine Protein Urine Glucose (UA) Urine Ketones Urine Occult Blood Urine Nitrite Urine Bilirubin Urine Urobilinogen Ur Leukocyte Esterase Ur Microscopic Review Urine Culture Comments Urine HCG, Qual NEGATIVE - Rads (name of study) Ct abd Relevant Findings:: Final report received (Large bowel containing ventral hernia without incarceration or strangulation.) PD Medical Decision Making - ED course Complexity details: reviewed results, re-evaluated patient, d/w patient ED course: 52-year-old female presents emergency department for evaluation of left upper quadrant abdominal pain that is been present now for about 2 weeks. She has a known large ventral hernia of the lower abdomen for which she is scheduled to see [facility] on February 19 to discuss repair and management. She denies any fevers, nausea or vomiting. No urinary symptoms. On exam she had a mildly tender left upper quadrant without guarding or rebound. However the entire abdomen was generally tender especially in the area of the known hernia. CBC and electrolytes were obtained and per my interpretation she has a mild leukopenia with a white count of 4.7. Hemoglobin was normal the electrolytes were without worrisome findings. Urinalysis showed no findings to suggest infection. Subsequently a CT of the abdomen completed showed a large bowel containing ventral hernia without any evidence of incarceration or strangulation. There is nothing to suggest a splenic infarct nephroureterolithiasis or diverticulitis. Patient felt reassured knowing her labs and CT imaging were essentially normal or unchanged. She feels comfortable following up with the [facility] on the as already scheduled. The usual emergent return precautions for worsening symptoms was discussed. Departure - Departure Disposition: 01 Home, Self Care Clinical Impression: Left upper quadrant abdominal pain Ventral hernia Qualifiers: Obstruction and gangrene presence: without obstruction or gangrene Qualified Code(s): K43.9 - Ventral hernia without obstruction or gangrene Condition: Stable Record reviewed to determine appropriate education?: Yes Comments: Bell your labs today were essentially normal. Your white blood cell count was 4.7. The cutoff for normal is 4.8. Your hemoglobin electrolytes are otherwise normal. The CT of your abdomen showed the large ventral hernia for which you are scheduled to see [facility] on February 19. There were no other worrisome findings on CT imaging. You can continue your usual medications at home. You will need to return to the ER if you develop uncontrolled vomiting, fevers, have any black or bloody stools or feel that your hernia becomes incarcerated or strangulated. Forms: PCP List
[2023-02-12 14:41] LABS: HCG UR QUAL NEGATIVE
[2023-02-12 16:05] VITALS: BP 168/88; O2SAT 95
[2023-02-12] MEDS ORDERED: iohexoL-300 100 ML VIAL IVP ONE (16:17)
--- NOTE | 2023-02-12 16:44 | CT Report ---
PROCEDURE: ABDOMEN/PELVIS W INDICATIONS: LUQ abd pain CONTRAST: 100ml omni 300 TECHNIQUE: After the administration of IV contrast, 5 mm thick sections acquired from the diaphragms to the symp hysis. 5 mm thick coronal and sagittal reformats were acquired. For radiation dose reduction, the f ollowing was used: automated exposure control, adjustment of mA and/or kV according to patient size. COMPARISON: CT abdomen pelvis 07/07/2019 FINDINGS: Image quality: Excellent. Lung bases and heart: Unremarkable. Liver: Low-attenuation focus is present in the right lobe, unchanged and suggestive of simple cyst. Gallbladder and biliary tree: Luminal stone without wall thickening. Spleen: No splenomegaly. Pancreas: No pancreatic ductal dilation. Adrenals: No adrenal nodule. Kidneys and ureters: No hydronephrosis. No renal cystic lesion which requires follow up. No solid mas s. Punctate nonobstructing renal calcification. Bowel and peritoneum: No bowel distension. No pathologic free fluid. Lymph nodes: No central or retroperitoneal adenopathy. Vessels: No infrarenal aortic aneurysm. PELVIS Reproductive organs: Unremarkable. Bladder: No abnormal wall thickening, accounting for underdistension. Pelvic lymph nodes: No pelvic adenopathy by size criteria. Bones: No aggressive osseous abnormality. Other: Large bowel containing ventral hernia without incarceration or strangulation. IMPRESSION: Large bowel containing ventral hernia without incarceration or strangulation. Reviewed by: Ronel Mcintosh MD on 02/12/2023 4:42 PM PST Approved by: Ronel Mcintosh MD on 02/12/2023 4:42 PM PST Station ID: [id number]
== END 2023-02-12 17:16 | disposition home or self-care (01) ==
LOC: ED 09:00
DX: K43.9 Ventral hernia without obstruction or gangrene (principal); Z79.899 Other long term (current) drug therapy
CPT/HCPCS: 36415; 74177; 80053; 81003; 81025; 83690; 85025; 96374; 96375; 99284; Q9967; 81001; 87086

== ENCOUNTER 2023-09-10 15:00 | Outpatient (CLI) | payer OTHER ==
[2023-09-10 17:53] LABS: BASOPHILS % (AUTO) 0.6 %; EOSINOPHILS # (AUTO) 0.3 10^3/uL (0.0-0.7); EOSINOPHILS % (AUTO) 4.9 %; HCT - HEMATOCRIT 41.7 % (37.0-47.0); HGB - HEMOGLOBIN 13.6 g/dL (12.0-16.0); LYMPHOCYTES # (AUTO) 1.2 10^3/uL (1.5-3.5); LYMPHOCYTES % (AUTO) 22.2 %; MEAN CORPUSCULAR HEMOGLOBIN 26.4 pg (27.0-31.0); MEAN CORPUSCULAR HGB CONC 32.6 g/dL (32.0-36.0); MONOCYTES # (AUTO) 0.3 10^3/uL (0.0-1.0); MONOCYTES % (AUTO) 5.8 %; NEUTROPHILS # (AUTO) 3.5 10^3/uL (1.5-6.6); NEUTROPHILS % (AUTO) 66.1 %; PLT - PLATELET COUNT 248 10^3/uL (130-450); RED BLOOD COUNT 5.15 10^6/uL (4.20-5.40); RED CELL DISTRIBUTION WIDTH 12.6 % (12.0-15.0); WHITE BLOOD COUNT 5.3 x10^3/uL (4.8-10.8)
[2023-09-10 18:07] LABS: ALBUMIN 4.6 g/dL (3.2-5.5); ALBUMIN/GLOBULIN RATIO 1.8 (1.0-2.2); BILIRUBIN,TOTAL 0.5 mg/dL (0.2-1.0); CALCIUM 10.1 mg/dL (8.5-10.3); CREATININE 0.7 mg/dL (0.6-1.3); TOTAL PROTEIN 7.1 g/dL (6.4-8.9)
== END 2023-09-10 15:15 | disposition home or self-care (01) ==
LOC: LAB.N 15:00
PROVIDERS: ATTEND Family Medicine
DX: R30.0 Dysuria (principal); R61 Generalized hyperhidrosis; R53.83 Other fatigue
CPT/HCPCS: 36415; 80053; 85025; 85651; 87086; 87181

== ENCOUNTER 2023-09-22 21:16 | Emergency (ER) | payer OTHER ==
[2023-09-22 21:39] VITALS: O2SAT 100
[2023-09-22 21:48] LABS: BASOPHILS % (AUTO) 0.6 %; EOSINOPHILS # (AUTO) 0.2 10^3/uL (0.0-0.7); EOSINOPHILS % (AUTO) 2.8 %; HCT - HEMATOCRIT 39.6 % (37.0-47.0); HGB - HEMOGLOBIN 13.1 g/dL (12.0-16.0); LYMPHOCYTES # (AUTO) 1.6 10^3/uL (1.5-3.5); LYMPHOCYTES % (AUTO) 23.5 %; MEAN CORPUSCULAR HEMOGLOBIN 26.7 pg (27.0-31.0); MEAN CORPUSCULAR HGB CONC 33.1 g/dL (32.0-36.0); MEAN CORPUSCULAR VOLUME 80.8 fL (81.0-99.0); MEAN PLATELET VOLUME 9.8 fL (7.9-10.8); MONOCYTES # (AUTO) 0.5 10^3/uL (0.0-1.0); MONOCYTES % (AUTO) 6.5 %; NEUTROPHILS # (AUTO) 4.6 10^3/uL (1.5-6.6); NEUTROPHILS % (AUTO) 66.3 %; PLT - PLATELET COUNT 249 10^3/uL (130-450); RED CELL DISTRIBUTION WIDTH 12.8 % (12.0-15.0); WHITE BLOOD COUNT 6.9 x10^3/uL (4.8-10.8)
[2023-09-22 22:01] LABS: ALBUMIN 4.7 g/dL (3.2-5.5); ALBUMIN/GLOBULIN RATIO 1.7 (1.0-2.2); BILIRUBIN,TOTAL 0.6 mg/dL (0.2-1.0); CALCIUM 9.7 mg/dL (8.5-10.3); CREATININE 0.8 mg/dL (0.6-1.3); POTASSIUM 3.5 mmol/L (3.5-4.5); TOTAL PROTEIN 7.5 g/dL (6.4-8.9)
[2023-09-22 23:05] LABS: BILIRUBIN,URINE NEGATIVE (NEGATIVE); GLUCOSE, URINE (UA) NEGATIVE (NEGATIVE); KETONES,URINE (UA) TRACE mg/dL (NEGATIVE); LEUKOCYTE ESTERASE, URINE NEGATIVE (NEGATIVE); NITRITE,URINE NEGATIVE (NEGATIVE); OCCULT BLOOD,URINE NEGATIVE (NEGATIVE); PROTEIN,URINE NEGATIVE (NEGATIVE); UROBILINOGEN,URINE 0.2 (NORMAL) E.U./dL (NORMAL)
[2023-09-22 23:07] LABS: CLARITY,URINE CLEAR (CLEAR)
--- NOTE | 2023-09-23 00:37 | ED Physician Documentation ---
PD HPI ABD PAIN - Stated complaint Stated Complaint: ABD PX/ - Chief complaint Chief Complaint: Abd Pain - History obtained from History obtained from: Patient - Additional information Additional information: HPI from patient. Patient has multiple complaints. She complains of pain across her lower back, episodic over the past several days, occasionally radiating around both flanks to her lower abdomen and pelvis. She complains of lightheadedness, "seeing spots" (per patient), bilateral lower extremity aching pains, hematuria, blood in her stool.Patient says she was having some of the symptoms last week and was seen by her PCP. She says that, at that time, tests were normal but, per patient, she insisted on having a urine culture which was positive for E. coli. As result of this culture result, she was prescribed a 5-day course of keflex. She says she has completed the course of antibiotics but presents due to worsening symptoms. 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 : None HEENT: Chronic sinusitis, Dental implants Psych: Anxiety, Bipolar disorder Musculoskeletal: Osteoarthritis, Fibromyalgia, Chronic back pain Derm: None - Past Surgical History Past Surgical History: Yes General: Hiatal hernia repair Ortho: Other /KOSHER SEALER: section, 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, Other - Present Medications Home Medications: Ambulatory Orders Medication Instructions Recorded Confirmed DULoxetine [Cymbalta] 1 cap PO DAILY 08/01/21 11/25/21 Gabapentin [Neurontin] 2 cap PO DAILY 08/01/21 12/01/21 - Allergies Allergies/Adverse Reactions: Allergies Allergy/AdvReac Type Severity Reaction Status Date / Time Latex, Natural Rubber Allergy Unknown unknown Verified 09/22/23 21:32 adhesive AdvReac Unknown UNKOWN Verified 09/22/23 21:32 hydrocodone AdvReac Unknown Hallucinati Verified 09/22/23 21:32 ons - Social History Does the pt smoke?: No Smoking Status: Never smoker Does the pt drink ETOH?: Yes Does the pt have substance abuse?: Yes - Immunizations Immunizations are current?: Yes - POLST Patient has POLST: No PD ED PE NORMAL - Vitals Vital signs reviewed: Yes - General General: Alert and oriented X 3, No acute distress, Well developed/nourished - HEENT HEENT: Moist mucous membranes - Neck Neck: Supple, no meningeal sign - Cardiac Cardiac: RRR, No murmur - Respiratory Respiratory: No respiratory distress, Clear bilaterally - Abdomen Abdomen: Soft, Non tender, Non distended, Other (healing surgical scars) - Back Back: No CVA TTP - Derm Derm: No rash - Extremities Extremities: No edema Results - Vitals Vitals: Vital Signs - 24 hr 09/22/23 09/23/23 21:22 01:00 Temperature 36.3 C L 36 C L Heart Rate 81 76 Respiratory 16 15 Rate Blood Pressure 146/93 H 135/67 H O2 Saturation 100 100 Oxygen O2 Source Room air - Labs Labs: Laboratory Tests 09/22/23 09/22/23 09/22/23 21:20 21:44 21:44 WBC 6.9 RBC 4.90 Hgb 13.1 Hct 39.6 MCV 80.8 L MCH 26.7 L MCHC 33.1 RDW 12.8 Plt Count 249 MPV 9.8 Neut # (Auto) 4.6 Lymph # (Auto) 1.6 [place] # (Auto) 0.5 Eos # (Auto) 0.2 Baso # (Auto) 0.0 Absolute Nucleated RBC 0.00 Nucleated RBC % 0.0 Sodium 141 Potassium 3.5 Chloride 103 Carbon Dioxide 32 Anion Gap 6.0 BUN 17 Creatinine 0.8 Estimated GFR (MDRD) 75 L Glucose 111 H Calcium 9.7 Total Bilirubin 0.6 AST 12 ALT 8 L Alkaline Phosphatase 57 Total Protein 7.5 Albumin 4.7 Globulin 2.8 Albumin/Globulin Ratio 1.7 Lipase 17 Urine Color YELLOW Urine Clarity CLEAR Urine pH 6.0 Ur Specific [place] >=1.030 H Urine Protein NEGATIVE Urine Glucose (UA) NEGATIVE Urine Ketones TRACE Urine Occult Blood NEGATIVE Urine Nitrite NEGATIVE Urine Bilirubin NEGATIVE Urine Urobilinogen 0.2 (NORMAL) Ur Leukocyte Esterase NEGATIVE Ur Microscopic Review NOT INDICATED Urine Culture Comments NOT INDICATED PD Medical Decision Making - ED course Complexity details: reviewed results, re-evaluated patient, considered differential, d/w patient ED course: Normal CBC (with insignificant exception of low MCV, low MCHC). Unremarkable ER abdominal panel (glucose 111 noted). Normal urinalysis except for concentrated specimen (specific gravity greater than 1.030). I discussed these results with the patient. Despite these reassuring results, the patient insists she needs further tests. She repeatedly tells me "I have an infection somewhere and it needs to be figured out". She repeatedly requests cultures of her blood and urine. I explained to her that, at this time, there are no indications for cultures of either her blood or urine. I reviewed with her, per her request, what would indicate the need for cultures of the either blood or urine (providing examples of abnormal urinalysis regarding the urine, and signs and/or symptoms of bacteremia and/or sepsis regarding the blood (such as fever, elevated white blood cell count)). She seems unconvinced but further testing can be considered in outpatient setting. Return precautions were discussed, but as I left the room she says she will go to [facility] ED instead Departure - Departure Disposition: 01 Home, Self Care Clinical Impression: Abdominal pain Qualifiers: Abdominal location: left lower quadrant Qualified Code(s): R10.32 - Left lower quadrant pain Condition: Good Instructions: ED Abdominal Pain Female Non-Specific Abdominal Pain Comments: There were no concerning nor diagnostic findings on tonight's test, including the blood tests and urinalysis. The cause of your symptoms is not apparent at this time. Contact your primary care provider to arrange for the next available appointment for follow-up/reevaluation. Discharge Date/Time: 09/23/23 01:15
[2023-09-23 01:53] VITALS: BP 135/67
== END 2023-09-23 01:15 | disposition home or self-care (01) ==
LOC: ED 21:16
DX: R10.32 Left lower quadrant pain (principal); Z79.899 Other long term (current) drug therapy
CPT/HCPCS: 36415; 80053; 81001; 81003; 83690; 85025; 87086; 99283